=== PATIENT | female | born 1955 | race Caucasian/White ===

== ENCOUNTER 2017-06-09 18:56 | Inpatient (IN) | payer OTHER ==
[~2017-06-09] VITALS: Ht 170.2 cm; Wt 93.1 kg
[2017-06-09] MEDS ORDERED: LASI20TA PO (19:20)
[2017-06-09] MEDS ORDERED: ASPI1TAB PO (19:20)
[2017-06-09] MEDS ORDERED: OXYC15TA76 PO (19:20)
[2017-06-09] MEDS ORDERED: LOPR1TAB6 PO (19:20)
[2017-06-09] MEDS ORDERED: ROPI0.25 PO (19:20)
[2017-06-09] MEDS ORDERED: BIOT50004 PO (19:20)
[2017-06-09] MEDS ORDERED: ATOR40TA75 PO (19:20)
[2017-06-09] MEDS ORDERED: VITA100067 PO (19:20)
[2017-06-09] MEDS ORDERED: HUMU500S SC ×2 (19:20→23:21)
[2017-06-09] MEDS ORDERED: TIZA4CAP3 PO (19:20)
[2017-06-09] MEDS ORDERED: GABA-283 PO (19:20)
[2017-06-09] MEDS ORDERED: AMLO25TA PO (19:20)
[2017-06-09] MEDS ORDERED: MAGN400T5 PO (19:20)
[2017-06-09] MEDS ORDERED: FLUO20CA8 PO (19:20)
[2017-06-09] MEDS ORDERED: MICA80TA3 PO (19:20)
[2017-06-09] MEDS ORDERED: METF10004 PO (19:20)
[2017-06-09] MEDS ORDERED: OMEP40CA2 PO (19:20)
[2017-06-09] MEDS ORDERED: DULC5TAB PO (19:20)
[2017-06-09 20:04] LABS: BASO % 0.3 % (0.0-1.0); EOS % 0.1 % (0.0-3.0); IMMATURE GRANULOCYTE % 0.6 % (0-0); LYMPH # 2.7 10^3/uL (1.5-4.5); LYMPH % 17.4 % (24.0-44.0); MEAN CORPUSCULAR HEMOGLOBIN 25.3 pg (27.0-33.0); MEAN CORPUSCULAR HGB CONC 32.4 g/dl (32.0-36.5); MONO # 1.1 10^3/uL (0.0-0.8); MONO % 7.4 % (0.0-5.0); NEUTROPHILS # 11.4 10^3/uL (1.8-7.7); NEUTROPHILS % 74.2 % (36.0-66.0); PLATELET COUNT, AUTOMATED 177 10^3/uL (150-450); RED CELL DISTRIBUTION WIDTH 16.7 % (11.5-14.5); WHITE BLOOD COUNT 15.3 10^3/uL (4.0-10.0)
[2017-06-09 20:16] LABS: ALBUMIN 3.4 GM/DL (3.2-5.2); ALBUMIN/GLOBULIN RATIO 0.94 (1.00-1.93); ALKALINE PHOSPHATASE 220 U/L (45-117); ALT/SGPT 53 U/L (12-78); ANION GAP 9 MEQ/L (8-16); AST/SGOT 42 U/L (15-37); BILIRUBIN,DIRECT 0.3 MG/DL (0.0-0.2); BILIRUBIN,TOTAL 0.8 MG/DL (0.2-1.0); BLOOD UREA NITROGEN 13 MG/DL (7-18); CALCIUM LEVEL 10.1 MG/DL (8.8-10.2); CARBON DIOXIDE LEVEL 23 MEQ/L (21-32); CHLORIDE LEVEL 106 MEQ/L (98-107); CREATININE FOR GFR 0.57 MG/DL (0.55-1.02); GLOMERULAR FILTRATION RATE > 60.0 (>45); GLUCOSE, FASTING 163 MG/DL (80-110); POTASSIUM SERUM 3.9 MEQ/L (3.5-5.1); SODIUM LEVEL 138 MEQ/L (136-145)
[2017-06-09] MEDS ORDERED: IPRATROPIUM 0.5MG/ALBUTEROL 2.5MG INH SOL UD 3ML (DUONEB)(J7620) NEB ONE (20:45)
[2017-06-09] MEDS ORDERED: methylPREDNISolone INJ 125 MG/2 ML VIAL (J2930) IV ONE (20:45)
[2017-06-09] MEDS ORDERED: ACETAMINOPHEN TAB 650MG DOSE (2X325MG) PO ONE (20:45)
[2017-06-09] MEDS ORDERED: PERCOCET 5MG/325MG TAB PO ONE (22:30)
[2017-06-09] MEDS ORDERED: ISOVUE-370 76% 100ML VIAL (Q9967) As Ordered ONE (22:37)
[2017-06-09] MEDS ORDERED: LevoFLOXacin IV 500 MG in APPROPRIATE DILUENT 1 EA IV ONE (23:15)
[2017-06-09] MEDS ORDERED: GABA600T PO (23:21)
[2017-06-09] MEDS ORDERED: AMLO10TA2 PO (23:21)
[2017-06-09] MEDS ORDERED: LIDO1PAD TOP (23:21)
[2017-06-09] MEDS ORDERED: TELM1TAB2 PO (23:21)
[2017-06-09] MEDS ORDERED: ALBU83IN INH (23:21)
[2017-06-09] MEDS ORDERED: OXYC-517 PO (23:21)
--- NOTE | 2017-06-09 23:30 | REPUSA ---
CT angiogram of the chest Clinical statement: shortness of breath. Technique: Multiple axial CT images were obtained from the thoracic inlet through the upper abdomen a fter a bolus administration of nonionic intravenous contrast. Coronal and sagittal reconstructions we re also obtained. No comparison is available. Findings: The pulmonary arteries are well-opacified with contrast, with no intraluminal filling defec ts to suggest embolism. The thoracic aorta is unremarkable. Thyroid gland is within normal limits. Th ere is mild mediastinal thoracic lymphadenopathy. For example, a large left upper mediastinal lymph n ode measures 1.7 x 1.1 cm. There are extensive diffuse ground glass infiltrates throughout the lungs bilaterally. No pleural effusion or pneumothorax is identified. Limited imaging of the upper abdomen is unremarkable. There are no suspicious osseous lesions. Impression: 1. No evidence of pulmonary embolism. 2. Diffuse extensive ground glass infiltrates throughout the lungs. Differential diagnosis includes i nfectious etiology such as diffuse atypical pneumonia versus inflammatory diseases such as ARDS. Foll ow-up is recommended as clinically indicated. 3. Mild left upper mediastinal lymphadenopathy.
[2017-06-10] MEDS ORDERED: BISACODYL 5 MG TAB PO PRN (01:30)
[2017-06-10] MEDS ORDERED: GLUCOSE 4 GM CHEW TABLET PO PRN (01:30)
[2017-06-10] MEDS ORDERED: LIDOCAINE 5% (LIDODERM) PATCH TOP SCH (01:30)
[2017-06-10] MEDS ORDERED: DEXTROSE 50% 50 ML SYRINGE IV PRN (01:30)
[2017-06-10] MEDS ORDERED: GLUCAGON FOR INJ 1 MG VIAL (J1610) SC PRN (01:30)
--- NOTE | 2017-06-10 02:30 | HPEPDOC ---
General Date of Admission Jun 10, 2017 at 01:27 Primary Care Physician: A Other Providers PCP IS IN [place], [place] Chief Complaint The patient is a 61-year-old female admitted with a reason for visit of Pneumonia. Source: Patient Exam Limitations: No limitations Timing/Duration: Day(s) (2-3 days) History of Present Illness 61 y/o female with past medical history of IDDM, HTN, hyperlipidemia and chronic back pain presents to ED after feeling ill for the past 2-3 days. Pt is apparently visiting family, she lives in [place]. The pt states for the past 4 days she has noted development of a non-productive cough, feeling "feverish" although she never took her temperature, having muscle aches and intermittent chills. She has also been nauseated the past three days but denies vomiting, denies loose stool/constipation nor change in urinary habits, pain with urination or blood in urine. Denies chest pain or feelings of a rapid heart rate. She did admit to a headache located across the front of her forehead for the past couple days, but denies change in vision and dizziness. She denies any sick contacts, and aside from traveling from [place], has no other travel recently and none out of the country. She has had no new medication changes recently, she does admit she sees a heart doctor but is not quite sure for what , denies history of a. fib or heart failure. Home Medications Scheduled (Lidocaine) 5 % Pad, 1 PATCH TOP Q12H, (Reported) Amlodipine Besylate (Amlodipine Besylate) 10 Mg Tab, 10 MG PO DAILY, (Reported) Aspirin (Aspirin 81) 81 Mg Tab, 81 MG PO DAILY, (Reported) Atorvastatin Calcium (Atorvastatin Calcium) 40 Mg Tab, 40 MG PO QHS, (Reported) Biotin (Vitamin H) (Biotin) 5,000 Mcg Cap, 5,000 MCG PO DAILY, (Reported) Fluoxetine Hcl (Fluoxetine) 20 Mg Cap, 40 MG PO DAILY, (Reported) Furosemide (Lasix) 20 Mg Tab, 20 MG PO DAILY, (Reported) Gabapentin (Gabapentin) 600 Mg Tab, 600 MG PO DAILY, (Reported) Insulin (Humulin R U-500 Kwikpen) 500 Unit/Ml Marnie, 140 UNITS SC QAM, (Reported) Insulin (Humulin R U-500 Kwikpen) 500 Unit/Ml Marnie, 110 UNITS SC DAILY, (Reported ) NOONTIME Magnesium Oxide (Magnesium Oxide 400) 400 Mg Tab, 400 MG PO BID, (Reported) Metformin Hydrochloride (Metformin HCl) 1,000 Mg Tab, 1,000 MG PO BID, (Reported ) Metoprolol Tartrate (Lopressor) 50 Mg Tab, 50 MG PO BID, (Reported) Omeprazole (Omeprazole) 40 Mg Cap, 40 MG PO DAILY, (Reported) Ropinirole Hydrochloride (Ropinirole HCl) 0.25 Mg Tab, 0.25-0.5 MG PO QHS, ( Reported) Telmisartan (Telmisartan) 80 Mg Tab, 80 MG PO DAILY, (Reported) Vitamin D (Vitamin D) 1,000 Unit Cap, 1,000 UNIT PO DAILY, (Reported) Scheduled PRN Albuterol Sulfate (Albuterol Sulfate) 2.5 Mg/3 Ml Nebu, 1 VIAL INH Q4H PRN for SHORTNESS OF BREATH, (Reported) Bisacodyl (Dulcolax) 5 Mg Tab, 5 MG PO DAILY PRN for CONSTIPATION, (Reported) Oxycodone HCl (Oxycodone HCl) 5 Mg Tab, 5 MG PO Q6H PRN for PAIN, (Reported) Tizanidine Hydrochloride (Tizanidine HCl) 4 Mg Cap, 2 MG PO TID PRN for MUSCLE SPASMS, (Reported) Allergies Coded Allergies: Erythromycin (Verified Allergy, Unknown, 06/09/17) Pregabalin (Verified Allergy, Unknown, 06/09/17) Sulfamethoxazole w/Trimethoprim (Verified Allergy, Unknown, 06/09/17) Past Medical History Medical History IDDM HTN hyperlipidemia chronic back pain Family History Significant Family History: No pertinent family hx Social History * Smoker: Denies Alcohol: Denies Drugs: denies Recent Travel/Sick Contacts: Reports: Recent travel (lives in [place], visitng relatives in [facility]) Review of Symptoms Constitutional: Reports: Chills, Fever, Malaise, Denies: Night Sweats, Weakness, Fatigue Eyes: Denies: Pain, Vision change ENT: Reports: Head Aches (front of forehead) Skin: Denies: Rash, Lesions, Jaundice Pulmonary: Reports: Dyspnea, Cough, Denies: Pleuritic Chest Pain Cardiovascular: Denies: Chest Pain, Palpitations, Orthopnea, Lt Headedness Gastrointestinal: Reports: Nausea, Denies: Vomiting, Abdominal Pain, Diarrhea, Constipation, Melena, Hematochezia Genitourinary: Denies: Dysuria Hematologic: Denies: Bruising Neurological: Denies: Weakness, Numbness Psych: Reports: Mood Normal Physical Examination General Exam: Positive: Alert, Cooperative, No Acute Distress Eye Exam: Positive: Conjunctiva & lids normal, EOMI, Negative: Sclera icteric, Ptosis ENT Exam: Positive: Atraumatic, Mucous membr. moist/pink, Pharynx Normal, Tongue Midline Neck Exam: Positive: Supple Chest Exam: Positive: Wheezing, Negative: Rales, Rhonchi, Diminished Heart Exam: Positive: Rate Normal, Normal S1, Normal S2, Negative: Gallops, Murmurs, Rubs Telemetry: Positive: No significant arrhythmia Abdomen Exam: Positive: Normal bowel sounds, Soft, Tenderness (mild tenderness in RL and LLQ, pt states it is because she has been coughing so much) Extremity Exam: Negative: Clubbing, Cyanosis, Edema, Swelling Psych Exam: Positive: Mental status NL Vital Signs Vital Signs Date Time Temp Pulse Resp B/P (MAP) Pulse Ox O2 Delivery O2 Flow Rate FiO2 06/10/17 01:33 85 22 142/64 (90) 92 Nasal Cannula 6.0 06/09/17 23:45 98.6 Laboratory Data Labs 24H Laboratory Tests 2 06/09/17 19:19: Immature Granulocyte % (Auto) 0.6H, White Blood Count 15.3H, Red Blood Count 4.95, Hemoglobin 12.5, Hematocrit 38.6, Mean Corpuscular Volume 78.0L, Mean Corpuscular Hemoglobin 25.3L, Mean Corpuscular Hemoglobin Concent 32.4, Red Cell Distribution Width 16.7H, Platelet Count 177, Neutrophils (%) (Auto) 74.2H , Lymphocytes (%) (Auto) 17.4L, Monocytes (%) (Auto) 7.4H, Eosinophils (%) (Auto ) 0.1, Basophils (%) (Auto) 0.3, Neutrophils # (Auto) 11.4H, Lymphocytes # (Auto ) 2.7, Monocytes # (Auto) 1.1H, Eosinophils # (Auto) 0.0, Basophils # (Auto) 0.0 , Immature Granulocyte # (Auto) 0.1H, Nucleated Red Blood Cells % (auto) 0.0, Anion Gap 9, Glomerular Filtration Rate > 60.0, Estimated Mean Plasma Glucose 237H, Hemoglobin A1c 9.9H, Lactic Acid Level 1.4, Calcium Level 10.1, Aspartate Amino Transf (AST/SGOT) 42H, Alanine Aminotransferase (ALT/SGPT) 53, Alkaline Phosphatase 220H, Total Bilirubin 0.8, Direct Bilirubin 0.3H, Total Creatine Kinase 97, Creatine Kinase MB 1.0, Creatine Kinase MB Relative Index 1.03, Troponin I < 0.02, C-Reactive Protein, Quantitative 13.60H, HP-Sjp-N-Type Natriuretic Peptide 228H, Total Protein 7.0, Albumin 3.4, Albumin/Globulin Ratio 0.94L 06/09/17 21:08: Urine Appearance HAZY, Urine Color AMADA, Urine pH 5.0, Urine Specific [place] 1.014, Urine Protein 1+H, Urine Glucose (UA) NEGATIVE, Urine Ketones TRACEH, Urine Urobilinogen 4.0H, Urine Bilirubin NEGATIVE, Urine Leukocyte Esterase TRACEH, Urine Blood 1+H, Urine Nitrite POSITIVE, Urine WBC (Auto) 17H, Urine RBC (Auto) 6H, Urine Hyaline Casts (Auto) 0, Urine Bacteria (Auto) 1+H, Urine Squamous Epithelial Cells 0, Urine Mucus (Auto) SMALL, Urine Sperm (Auto) CBC/BMP Laboratory Tests 06/09/17 19:19 Red Blood Count 4.95, Mean Corpuscular Volume 78.0 L, Mean Corpuscular Hemoglobin 25.3 L, Mean Corpuscular Hemoglobin Concent 32.4, Red Cell Distribution Width 16.7 H, Neutrophils (%) (Auto) 74.2 H, Lymphocytes (%) (Auto ) 17.4 L, Monocytes (%) (Auto) 7.4 H, Eosinophils (%) (Auto) 0.1, Basophils (%) (Auto) 0.3, Neutrophils # (Auto) 11.4 H, Lymphocytes # (Auto) 2.7, Monocytes # ( Auto) 1.1 H, Eosinophils # (Auto) 0.0, Basophils # (Auto) 0.0 Microbiology Microbiology 06/09/17 Blood Culture, Received Pending 06/09/17 Blood Culture, Received Pending 06/09/17 Respiratory Virus Panel (PCR) (RADHIKA), Received Pending Problems (1) Pneumonia Status: Acute Response to Treatment: Stable Problem Text: pt cxr showed right infiltrate CRP and WBC elevated, temp 102.2 upon presentation elevated WBC -sputum cx and resp panel, bloodd cx and UA pending received levofloxacin in ED, will continue oxygen and duoneb therapy no indication for steroid therapy at this time, pt is not SOB one exam and is comfortable CTA demonstrated no evidence of PE and diffuse extensive ground glass infiltrates throughout the lungs w/ mild upper mediastinal lymphadenopathy. (2) HTN (hypertension) Status: Chronic Response to Treatment: Stable Problem Text: 143/63 c/w home medications (3) DM2 (diabetes mellitus, type 2) Status: Chronic Response to Treatment: Stable Problem Text: glucose 163 upon presentation pt receives kwikpen insulin 140 units in the AM and 110 units noontime, will continue 90 units BID and cover with meal time adjusted insulin with ACHS fingersticks HgA1C pending const. carb diet d/c home metformin while in house (4) Chronic back pain Status: Chronic Response to Treatment: Stable Problem Text: c/w home pain medication (5) Restless leg syndrome Status: Chronic Response to Treatment: Stable Problem Text: c/w home Requip (6) DVT prophylaxis Status: Acute Response to Treatment: Stable Problem Text: scd teds lovenox Plan / VTE VTE Prophylaxis Ordered?: Yes GME ATTESTATION GME ATTESTATION My preceptor for this patient encounter was physically present in the building during the encounter and was fully available. As needed, all aspects of the patient interview, examination, medical decision making process, and medical care plan development were reviewed and approved by the preceptor. Preceptor is aware and concurs with the plan as stated in the body of this note and will attest to such by his/her cosignature. ATTENDING NOTE I have both independently examined this patient as well as reviewed the H&P. I have discussed in detail with the resident the findings and plan of treatment as documented in the residents note. I will continue to follow the patient and offer further guidance to the patients care as necessary during this hospital stay. MEHRAN Moreno MD, DO Jun 10, 2017 02:30 ANYA THIBODEAUX MD Jun 10, 2017 18:36
[2017-06-10 03:00] VITALS: BP 158/72
[2017-06-10] MEDS: ATORVASTATIN 20 MG TAB PO SCH ×2 (03:19→20:21)
[2017-06-10] MEDS: rOPINIRole 0.25 MG TAB(REQUIP) PO SCH ×2 (03:19→20:22)
[2017-06-10 06:22] LABS: BASO % 0.1 % (0.0-1.0); IMMATURE GRANULOCYTE % 1.1 % (0-0); LYMPH # 1.5 10^3/uL (1.5-4.5); LYMPH % 9.9 % (24.0-44.0); MEAN CORPUSCULAR HEMOGLOBIN 25.1 pg (27.0-33.0); MEAN CORPUSCULAR HGB CONC 31.8 g/dl (32.0-36.5); MEAN CORPUSCULAR VOLUME 78.8 fl (80.0-96.0); MONO # 0.7 10^3/uL (0.0-0.8); MONO % 4.6 % (0.0-5.0); NEUTROPHILS # 12.8 10^3/uL (1.8-7.7); NEUTROPHILS % 84.3 % (36.0-66.0); PLATELET COUNT, AUTOMATED 178 10^3/uL (150-450); RED CELL DISTRIBUTION WIDTH 16.7 % (11.5-14.5); WHITE BLOOD COUNT 15.2 10^3/uL (4.0-10.0)
[2017-06-10 06:36] LABS: ANION GAP 11 MEQ/L (8-16); BLOOD UREA NITROGEN 16 MG/DL (7-18); CALCIUM LEVEL 9.9 MG/DL (8.8-10.2); CARBON DIOXIDE LEVEL 19 MEQ/L (21-32); CHLORIDE LEVEL 107 MEQ/L (98-107); GLOMERULAR FILTRATION RATE > 60.0 (>45); GLUCOSE, FASTING 327 MG/DL (80-110); POTASSIUM SERUM 3.9 MEQ/L (3.5-5.1); SODIUM LEVEL 137 MEQ/L (136-145)
[2017-06-10] MEDS ORDERED: HUMULIN R U-500 KWIKPEN 500UNITS/ML 3ML SYRINGE (J1815 PER 5UNITS) SC SCH ×2 (07:30→09:00)
[2017-06-10] MEDS ORDERED: HumaLOG INSULIN (NovoLOG) PER UNIT SC SCH (09:00)
[2017-06-10] MEDS: NICOTINE 21MG/24HR 1 EA TRANSDERMAL TD SCH (09:00)
[2017-06-10] MEDS: ENOXAPARIN 40 MG/0.4 ML SYRINGE (J1650) SC SCH (09:41)
[2017-06-10] MEDS: HumaLOG INSULIN (NovoLOG) PER UNIT SC SCH ×4 (09:41→21:19)
[2017-06-10] MEDS: oxyCODONE 5MG TAB PO PRN ×2 (09:43→17:05)
[2017-06-10] MEDS: METOPROLOL TART 50 MG TAB PO SCH ×2 (09:43→20:22)
[2017-06-10] MEDS: MAGNESIUM OXIDE 400 MG TAB (MAG-OX) PO SCH ×2 (09:44→20:21)
[2017-06-10] MEDS: OMEPRAZOLE 20 MG CAP PO SCH (09:44)
[2017-06-10] MEDS: GABAPENTIN 300 MG CAP PO SCH (09:44)
[2017-06-10] MEDS: SENOKOT S TAB PO SCH ×2 (09:45→20:22)
[2017-06-10] MEDS: VITAMIN D 1,000 INTERNATIONAL UNITS TABLET PO SCH (09:45)
[2017-06-10] MEDS: FUROSEMIDE 20 MG TAB PO SCH (09:45)
[2017-06-10] MEDS: ASPIRIN 81 MG ENTERIC TAB PO SCH (09:45)
[2017-06-10] MEDS: FLUoxetine 20 MG CAP PO SCH (09:45)
[2017-06-10] MEDS: amLODIPine 10 MG TAB PO SCH (09:45)
[2017-06-10] MEDS: TELMISARTAN 20 MG TAB PO SCH (09:45)
--- NOTE | 2017-06-10 11:30 | REP ---
Portable chest x-ray: Sitting AP view. History: Dyspnea. Cough. No comparison study. Findings: There are increased somewhat linear markings in the right base consistent with infiltrate. Perihilar markings are increased on the left as well. Pleural angles are sharp. Heart is not enlarged. Impression: Bilateral infiltrates. Signed by Branden Khan MD 06/10/2017 09:39 A
[2017-06-10] MEDS: methylPREDNISolone INJ 125 MG/2 ML VIAL (J2930) IV SCH (12:28)
[2017-06-10 14:00] VITALS: BP 126/60
[2017-06-10] MEDS ORDERED: IBUPROFEN 800 MG TAB PO ONE (20:00)
[2017-06-10] MEDS: LevoFLOXacin IV 750 MG in APPROPRIATE DILUENT 1 EA IV SCH (20:23)
[2017-06-10] MEDS ORDERED: **NOTE PATIENT COMMENT** MISC XX SCH (21:00)
[2017-06-10 22:00] VITALS: BP 137/62
[2017-06-11] MEDS: methylPREDNISolone INJ 125 MG/2 ML VIAL (J2930) IV SCH ×3 (00:09→23:42)
[2017-06-11 06:06] LABS: IMMATURE GRANULOCYTE % 1.8 % (0-0); LYMPH # 1.9 10^3/uL (1.5-4.5); LYMPH % 9.4 % (24.0-44.0); MEAN CORPUSCULAR HEMOGLOBIN 25.1 pg (27.0-33.0); MEAN CORPUSCULAR VOLUME 78.3 fl (80.0-96.0); MONO # 0.8 10^3/uL (0.0-0.8); MONO % 3.8 % (0.0-5.0); NEUTROPHILS # 17.1 10^3/uL (1.8-7.7); PLATELET COUNT, AUTOMATED 221 10^3/uL (150-450); RED CELL DISTRIBUTION WIDTH 16.9 % (11.5-14.5); WHITE BLOOD COUNT 20.2 10^3/uL (4.0-10.0)
[2017-06-11 06:20] LABS: ANION GAP 9 MEQ/L (8-16); BLOOD UREA NITROGEN 29 MG/DL (7-18); CALCIUM LEVEL 9.5 MG/DL (8.8-10.2); CARBON DIOXIDE LEVEL 22 MEQ/L (21-32); CHLORIDE LEVEL 109 MEQ/L (98-107); CREATININE FOR GFR 0.52 MG/DL (0.55-1.02); GLOMERULAR FILTRATION RATE > 60.0 (>45); GLUCOSE, FASTING 322 MG/DL (80-110); MAGNESIUM LEVEL 1.8 MG/DL (1.8-2.4); SODIUM LEVEL 140 MEQ/L (136-145)
[2017-06-11 06:51] VITALS: BP 134/63
--- NOTE | 2017-06-11 07:55 | ECGEPIP ---
Stationary ECG Study [facility] - ED Test Date: 2017-06-09 Pat Name: HAL BECERRA Department: Room: [place] [address] Gender: F Labeling Strategist: GallegosB: 1955 Requested By: JAZMIN Whitfield Order Number: [id number] Reading MD: Renetta Campos Measurements Intervals [place] Rate: 90 P: -16 ND: 174 QRS: -53 QRSD: 114 T: 79 QT: 371 QTc: 455 Interpretive Statements SINUS RHYTHM LEFT ANTERIOR FASCICULAR BLOCK LEFT VENTRICULAR HYPERTROPHY AND ST-T CHANGE VS ISCHEMIA POSSIBLE SEPTAL MYOCARDIAL INFARCTION, OF INDETERMINATE AGE IVCD NO PRIOR FOR COMPARISON Electronically Signed On 06-11-2017 7:55:32 EDT by Renetta Campos
[2017-06-11] MEDS: FLUoxetine 20 MG CAP PO SCH (08:25)
[2017-06-11] MEDS: HumaLOG INSULIN (NovoLOG) PER UNIT SC SCH ×4 (08:25→21:00)
[2017-06-11] MEDS: METOPROLOL TART 50 MG TAB PO SCH ×2 (08:26→21:25)
[2017-06-11] MEDS: ASPIRIN 81 MG ENTERIC TAB PO SCH (08:26)
[2017-06-11] MEDS: SENOKOT S TAB PO SCH ×2 (08:26→21:21)
[2017-06-11] MEDS: FUROSEMIDE 20 MG TAB PO SCH (08:26)
[2017-06-11] MEDS: amLODIPine 10 MG TAB PO SCH (08:26)
[2017-06-11] MEDS: VITAMIN D 1,000 INTERNATIONAL UNITS TABLET PO SCH (08:27)
[2017-06-11] MEDS: MAGNESIUM OXIDE 400 MG TAB (MAG-OX) PO SCH ×2 (08:27→21:22)
[2017-06-11] MEDS: GABAPENTIN 300 MG CAP PO SCH (08:27)
[2017-06-11] MEDS: OMEPRAZOLE 20 MG CAP PO SCH (08:27)
[2017-06-11] MEDS: ENOXAPARIN 40 MG/0.4 ML SYRINGE (J1650) SC SCH (08:28)
[2017-06-11] MEDS: NICOTINE 21MG/24HR 1 EA TRANSDERMAL TD SCH (08:28)
[2017-06-11] MEDS: oxyCODONE 5MG TAB PO PRN ×3 (08:37→21:23)
[2017-06-11] MEDS: TELMISARTAN 20 MG TAB PO SCH (09:48)
[2017-06-11] MEDS: tiZANidine 4 MG TAB PO PRN ×2 (09:59→17:23)
--- NOTE | 2017-06-11 12:16 | IPN ---
DATE: 06/11/2017 Mitch is seen at [address] [place] [address]. She was admitted with atypical pneumonitis. She had myalgias headaches, fevers, chills, temperature up to 102.2 on admission. She is on Levaquin. She is feeling a little better with this. CRP is still high. White count is still elevated,(on steroids). No past history on any cardiac disease. Past medical history shows hypertension, type 2 diabetes now on insulin, chronic pain syndromes, restless leg syndrome. Hyperlipidemia. PHYSICAL EXAMINATION: Blood pressure 136/63, pulse 67, respiratory rate 18, Oxygen saturation 90% on 6 liters, temperature 96.6 degrees. General appearance: She is resting comfortably. She is speaking in full sentences. She has unlabored speech. No retractions. HEENT: Unremarkable. Lungs: Diffuse wheezes, a few rhonchi. Heart: Regular rhythm. No murmur. Abdomen: Soft, nontender, no masses. No peripheral edema. White count 20,000 (on steroids). Platelets 220, hemoglobin 12. Sodium 140, potassium 4.0, BUN 29, creatinine 0.4, glucose 322. Hemoglobin 69.9%. C-reactive protein 14. CT of the chest was reviewed and showed diffuse extensive ground-glass infiltrates throughout the lungs. IMPRESSION: 1. Suspected atypical pneumonitis. She is on Levaquin and will continue this. She is on IV steroids, which I think are helping. Will continue to use these as well. Oxygen requirements are high but she is comfortable and does not seem to be significantly short of breath. Need to keep our thoughts open to noninfectious etiologies such as acute respiratory distress syndrome (ARDS) or inflammatory lung diseases secondary to exposures. 2. Diabetes: Controlled as an outpatient as before. Hemoglobin A1c 9.9%. She is on sliding scale of insulin. Will add some basal insulin. Insulin requirements at home are very high. 3. Hyperlipidemia: Continue her on atorvastatin. 4. History of chronic pain problems. Continue her on Neurontin, fluoxetine, oxycodone. 5. Hypertension: Blood pressure is well controlled on her current regimen.
[2017-06-11 14:00] VITALS: BP 123/59
[2017-06-11] MEDS: IBUPROFEN 600 MG TAB PO PRN (17:24)
[2017-06-11] MEDS: IPRATROPIUM 0.5MG/ALBUTEROL 2.5MG INH SOL UD 3ML (DUONEB)(J7620) NEB PRN (17:43)
[2017-06-11] MEDS ORDERED: LEVEMIR (INSULIN DETEMIR) 1 UNITS/0.01ML SC SCH (21:00)
[2017-06-11] MEDS: ATORVASTATIN 20 MG TAB PO SCH (21:21)
[2017-06-11] MEDS: rOPINIRole 0.25 MG TAB(REQUIP) PO SCH (21:22)
[2017-06-11] MEDS: LevoFLOXacin IV 750 MG in APPROPRIATE DILUENT 1 EA IV SCH (21:23)
[2017-06-11 22:00] VITALS: BP 116/55
[2017-06-12] MEDS: IBUPROFEN 600 MG TAB PO PRN ×4 (00:39→21:24)
[2017-06-12 06:00] VITALS: BP 146/77
[2017-06-12 06:10] LABS: BASO % 0.1 % (0.0-1.0); IMMATURE GRANULOCYTE % 0.9 % (0-0); LYMPH # 1.6 10^3/uL (1.5-4.5); LYMPH % 9.9 % (24.0-44.0); MEAN CORPUSCULAR HEMOGLOBIN 25.1 pg (27.0-33.0); MEAN CORPUSCULAR HGB CONC 32.3 g/dl (32.0-36.5); MEAN CORPUSCULAR VOLUME 77.6 fl (80.0-96.0); MONO # 0.7 10^3/uL (0.0-0.8); MONO % 4.3 % (0.0-5.0); NEUTROPHILS # 14.1 10^3/uL (1.8-7.7); NEUTROPHILS % 84.8 % (36.0-66.0); PLATELET COUNT, AUTOMATED 216 10^3/uL (150-450); RED CELL DISTRIBUTION WIDTH 16.6 % (11.5-14.5); WHITE BLOOD COUNT 16.6 10^3/uL (4.0-10.0)
[2017-06-12 06:43] LABS: ANION GAP 8 MEQ/L (8-16); BLOOD UREA NITROGEN 32 MG/DL (7-18); CALCIUM LEVEL 9.8 MG/DL (8.8-10.2); CARBON DIOXIDE LEVEL 23 MEQ/L (21-32); CHLORIDE LEVEL 106 MEQ/L (98-107); CREATININE FOR GFR 0.54 MG/DL (0.55-1.02); GLOMERULAR FILTRATION RATE > 60.0 (>45); GLUCOSE, FASTING 344 MG/DL (80-110); MAGNESIUM LEVEL 1.9 MG/DL (1.8-2.4); POTASSIUM SERUM 4.1 MEQ/L (3.5-5.1); SODIUM LEVEL 137 MEQ/L (136-145)
[2017-06-12] MEDS: HumaLOG INSULIN (NovoLOG) PER UNIT SC SCH ×4 (08:01→21:00)
[2017-06-12 08:42] VITALS: BP 162/75
[2017-06-12] MEDS: ENOXAPARIN 40 MG/0.4 ML SYRINGE (J1650) SC SCH (09:31)
[2017-06-12] MEDS: TELMISARTAN 20 MG TAB PO SCH (09:32)
[2017-06-12] MEDS: SENOKOT S TAB PO SCH ×2 (09:33→21:00)
[2017-06-12] MEDS: VITAMIN D 1,000 INTERNATIONAL UNITS TABLET PO SCH (09:33)
[2017-06-12] MEDS: NICOTINE 21MG/24HR 1 EA TRANSDERMAL TD SCH (09:33)
[2017-06-12] MEDS: ASPIRIN 81 MG ENTERIC TAB PO SCH (09:33)
[2017-06-12] MEDS: FLUoxetine 20 MG CAP PO SCH (09:33)
[2017-06-12] MEDS: FUROSEMIDE 20 MG TAB PO SCH (09:34)
[2017-06-12] MEDS: amLODIPine 10 MG TAB PO SCH (09:34)
[2017-06-12] MEDS: GABAPENTIN 300 MG CAP PO SCH (09:34)
[2017-06-12] MEDS: OMEPRAZOLE 20 MG CAP PO SCH (09:35)
[2017-06-12] MEDS: METOPROLOL TART 50 MG TAB PO SCH ×2 (09:35→21:12)
[2017-06-12] MEDS: MAGNESIUM OXIDE 400 MG TAB (MAG-OX) PO SCH ×2 (09:35→21:12)
[2017-06-12] MEDS: IPRATROPIUM 0.5MG/ALBUTEROL 2.5MG INH SOL UD 3ML (DUONEB)(J7620) NEB PRN ×2 (09:47→15:37)
[2017-06-12] MEDS: oxyCODONE 5MG TAB PO PRN ×2 (10:11→17:53)
[2017-06-12] MEDS: tiZANidine 4 MG TAB PO PRN (10:44)
--- NOTE | 2017-06-12 11:23 | IPN ---
DATE OF SERVICE: 06/12/2017 Mitch feels better. She was a little short of breath this morning. She responded to nebulized bronchodilator treatment. Being admitted for atypical pneumonitis with interstitial inflammation on IV steroids and Levaquin. Blood pressure is mildly elevated probably steroid effect. PHYSICAL EXAMINATION: 162/75, pulse 65, respiratory rate 22, 91% oxygen saturation on 6 liters. She is alert, conversant, no distress. Looks better than yesterday. Lungs: Expiratory wheezes. A few scattered rales. Heart: Regular rhythm. Abdomen: Soft, nontender. No peripheral edema. No jugular venous distention (JVD). LABS: White count 16,000 on steroids, hemoglobin 12, platelets 216. Sodium 137, potassium 4.1, BUN 32, creatinine 0.6, glucose 60. CRP is down to 8. We are doing these daily. Blood sugars are quite high. IMPRESSION: 1. Atypical pneumonitis. Continue current regimen. Seems to be slowly responding to this. Still has high oxygen requirements. 2. Diabetes. Increase her basal insulin. Blood sugars are high probably from the intravenous steroids. I am going to reduce the dose of these today. Increasing her basal insulin. 3. Hypertension. Blood pressure is a little up this morning probably from the steroids. 4. Hyperlipidemia. Continue atorvastatin. I expect she will be here for at least a few more days.
[2017-06-12] MEDS: methylPREDNISolone INJ 40 MG/1 ML VIAL (J2920) IV SCH ×2 (12:12→23:56)
[2017-06-12 14:33] VITALS: BP 136/63
[2017-06-12] MEDS ORDERED: LEVEMIR (INSULIN DETEMIR) 1 UNITS/0.01ML SC SCH (21:00)
[2017-06-12] MEDS: rOPINIRole 0.25 MG TAB(REQUIP) PO SCH (21:11)
[2017-06-12] MEDS: ATORVASTATIN 20 MG TAB PO SCH (21:11)
[2017-06-12] MEDS: LevoFLOXacin IV 750 MG in APPROPRIATE DILUENT 1 EA IV SCH (21:13)
[2017-06-12 22:00] VITALS: BP 139/66
[2017-06-13] MEDS: oxyCODONE 5MG TAB PO PRN ×2 (05:31→14:22)
[2017-06-13 06:00] VITALS: BP 154/70
[2017-06-13 07:26] LABS: BASO % 0.2 % (0.0-1.0); IMMATURE GRANULOCYTE % 1.1 % (0-0); LYMPH # 1.9 10^3/uL (1.5-4.5); LYMPH % 16.8 % (24.0-44.0); MEAN CORPUSCULAR HGB CONC 32.4 g/dl (32.0-36.5); MEAN CORPUSCULAR VOLUME 77.1 fl (80.0-96.0); MONO # 0.8 10^3/uL (0.0-0.8); NEUTROPHILS # 8.6 10^3/uL (1.8-7.7); NEUTROPHILS % 74.9 % (36.0-66.0); PLATELET COUNT, AUTOMATED 206 10^3/uL (150-450); RED CELL DISTRIBUTION WIDTH 16.6 % (11.5-14.5); WHITE BLOOD COUNT 11.5 10^3/uL (4.0-10.0)
[2017-06-13 07:57] LABS: ANION GAP 5 MEQ/L (8-16); BLOOD UREA NITROGEN 23 MG/DL (7-18); CALCIUM LEVEL 9.2 MG/DL (8.8-10.2); CARBON DIOXIDE LEVEL 26 MEQ/L (21-32); CHLORIDE LEVEL 108 MEQ/L (98-107); CREATININE FOR GFR 0.49 MG/DL (0.55-1.02); GLOMERULAR FILTRATION RATE > 60.0 (>45); GLUCOSE, FASTING 252 MG/DL (80-110); MAGNESIUM LEVEL 1.8 MG/DL (1.8-2.4); POTASSIUM SERUM 4.2 MEQ/L (3.5-5.1); SODIUM LEVEL 139 MEQ/L (136-145)
[2017-06-13] MEDS: SENOKOT S TAB PO SCH ×3 (09:00→21:00)
[2017-06-13] MEDS: FLUoxetine 20 MG CAP PO SCH (09:29)
[2017-06-13] MEDS: GABAPENTIN 300 MG CAP PO SCH (09:29)
[2017-06-13] MEDS: FUROSEMIDE 20 MG TAB PO SCH (09:30)
[2017-06-13] MEDS: IBUPROFEN 600 MG TAB PO PRN (09:30)
[2017-06-13] MEDS: VITAMIN D 1,000 INTERNATIONAL UNITS TABLET PO SCH (09:31)
[2017-06-13] MEDS: ASPIRIN 81 MG ENTERIC TAB PO SCH (09:31)
[2017-06-13] MEDS: amLODIPine 10 MG TAB PO SCH (09:31)
[2017-06-13] MEDS: OMEPRAZOLE 20 MG CAP PO SCH (09:43)
[2017-06-13] MEDS: TELMISARTAN 20 MG TAB PO SCH (09:44)
[2017-06-13] MEDS: METOPROLOL TART 50 MG TAB PO SCH ×2 (09:45→21:27)
[2017-06-13] MEDS: ENOXAPARIN 40 MG/0.4 ML SYRINGE (J1650) SC SCH (09:45)
[2017-06-13] MEDS: NICOTINE 21MG/24HR 1 EA TRANSDERMAL TD SCH (09:45)
[2017-06-13] MEDS: methylPREDNISolone INJ 125 MG/2 ML VIAL (J2930) IV SCH ×3 (09:46→21:27)
[2017-06-13] MEDS: MAGNESIUM OXIDE 400 MG TAB (MAG-OX) PO SCH ×2 (09:47→21:27)
[2017-06-13] MEDS: HumaLOG INSULIN (NovoLOG) PER UNIT SC SCH ×4 (09:58→21:00)
--- NOTE | 2017-06-13 11:15 | CR ---
ADDENDUM: This is an addendum to consult that has already been dictated by my resident. HISTORY OF PRESENT ILLNESS: Mitch is a 61-year-old female who presented with fever, nonproductive cough and muscle aches. On admission had significant ground-glass opacities on chest CT and significant hypoxia. I was asked to see her as now that she is 2 days into her hospitalization, she continues to be significantly hypoxic despite IV steroids and antibiotics. Her viral panel is unremarkable. She did receive a flu shot, however, this was 2 days prior to her leaving [place]. She started with a nonproductive cough and fever at home, then flew to [place] to visit family. She describes having prior lung biopsy, appears to have had a wedge, however, does not believe she was told the results of this test. She thinks she had this biopsy performed approximately a year ago. She has no diagnosis of rheumatoid or connective tissue disorders, however, has migratory arthralgias and was actually seen by a director of placement and told that she does not have rheumatoid arthritis. She states this occurs almost on a yearly basis. She usually requires steroids. At one point in time she was on steroids for 6 months. Eventually it goes away and she no longer needs oxygen. She states occasionally , she goes as high as 6 liters but usually is down to 2 or 3 liters a couple of days into the illness after treatment. She does not routinely use oxygen at home. She denies hemoptysis. History and physical exam independently performed by myself along with a detailed history. This is reflected in my residence's note. ASSESSMENT/PLAN: 1. Severe hypoxia with ground-glass infiltrates on abnormal chest CT. This is quite a suspicious presentation as her initial presentation appears to be infectious given her fever, chills, and non-productive cough with muscle aches. 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 At this point in time, I do not believe that she has a bacterial infection. There is no dense consolidation. Her chest CT is most consistent with ground-glass infiltrates in all [place]. She has no significant productive mucous. Although she has as history of diastolic heart failure, I do not believe she is in decompensated heart failure at this point in time. However, remains in the differential and I would continue to ensure that she remains well compensated. She does have a history of significant smoking, this could be diffuse interstitial pneumonia (DIP). Alternative diagnoses including nonspecific interstitial pneumonia (NSIP), acute interstitial pneumonia (AIP). She does not have any risk factors for HIV, therefore, I think lymphocytic interstitial pneumonia (LIP) is unlikely. I will screen her for HIV as occasionally pneumocystis pneumonia (PCP) can present this way. If she has no significant improvement on higher dose steroids, which I placed her on, I will consider bronchoscopy. However I believe we should aggressively seek records from her prior biopsy in order for better understanding of her prior history as this seems to be a recurring event. I have also obtained fungal titers, although it is unlikely that this is a fungal infection, especially due to the fact that she was in [place]. I have also ordered connective tissue panels due to her history of what sounds like migratory arthritis. She has no other symptoms of connective tissue disorders. No rashes. She has been ruled out for pulmonary embolism. No clinical manifestations of sarcoid and this does not appear to be consistent with tuberculosis. She has had no tuberculosis exposures. DIAGNOSES: 1. Severe hypoxia. 2. Abnormal chest CT. 3. Nicotine dependency, extensively counseled the need to quit smoking. There is a chance that ongoing smoking could be contributing to her disease process. Thank you for this consultation of quite an interesting case. Will continue to follow and continue to obtain information to help us formally diagnose this patient. NIK
--- NOTE | 2017-06-13 11:24 | CR.PDOC ---
[facility] Consultation Consultation DATE OF CONSULTATION: Jun 09, 2017 at 18:56 PRIMARY CARE PHYSICIAN: Dr. Bass in [place] REFERRING PROVIDER: Dr. prado ATTENDING PHYSICIAN: Dr. Srivastava REASON FOR CONSULTATION/CHIEF COMPLAINT: Difficulty breathing, abnormal CT HISTORY OF PRESENT ILLNESS: 61-year-old female that presents with a past medical history of hypertension, hyperlipidemia, chronic back pain, insulin- dependent diabetes mellitus. Patient is a [place] of [place]. On Sunday of this week she started having shortness of breath along with a nonproductive cough. Over the course of the week her symptoms progressed. She flew from [place] to [place] on Sunday. On sunday in [place] she developed a fever , this prompted a visit to the emergency room. She presented to the emergency room with shortness of breath and fever. Patient states she has experienced symptoms like this in the past. According to patient for the past 6 years she has been getting pneumonia annually in the summer, this usually requires hospitalization, oxygen, antibiotics and steroids, she usually stays for about a week. She is discharged home with steroids and a week of oxygen plus an inhaler. She has never been intubated during hospital stays, nor has she ever had to be on ventilator. Patient states that she's had a workup for this chronic recurrent pneumonia. She states that she had a biopsy done about a year ago at [facility] in [place], however she was not made aware of results. Since the beginning of her symptoms she has experienced chest pain, along with chest pressure, especially with coughing. She denies any hemoptysis. She states that her cough are deep and dry. She admits nausea, however denies vomiting and diarrhea. She has no exposure history to TB. Her travel history includes a trip to [place] about 20 years ago, besides that no recent travel travel. She denies any exposure to birds. She admits to occasional swelling in bilateral lower extremities, as well as in the abdomen. Patient also admits to stiff joints on occasions .She denies any environmental allergies. She does have an extensive smoking history patient has been smoking anywhere half a pack to 1 pack a day for the last 40 years. Patient has receive the Prevnar 13 and 23 a year ago. She also received a flu vaccination on 06/11/2017. ALLERGIES: Please see below. HOME MEDICATIONS: Please see below. PAST MEDICAL HISTORY: Pneumonia Hypertension Hyperlipidemia Chronic low back pain Insulin-dependent diabetes mellitus PAST SURGICAL HISTORY: 1. Gallbladder was removed in 2006 2. Lung biopsy FAMILY HISTORY: Denies any family history of lupus, no TB exposure for many family members. SOCIAL HISTORY: Lives at home with her along with 4 dogs. 2 labs, one cocker spaniel, and one terrier. 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 She smokes anywhere between half a pack to 1 pack a day for last 40 years. Patient denies alcohol. Patient is any other illicit drugs. REVIEW OF SYSTEMS: CONSTITUTIONAL: Admits to fever, chills denies night sweats, denies weight loss or weight gain HEENT: Denies any head trauma denies sore throat CARDIOVASCULAR: Admits to chest pain with cough along with chest pressure. RESPIRATORY: admits to shortness of breath. GENITOURINARY: No issues or urinary frequency, dysuria, hematuria. MUSCULOSKELETAL: admits to joint pain and overall muscle pain. GASTROINTESTINAL: No diarrhea, no constipation, no blood in stool. SKIN: No rashes noted. NEUROLOGICAL: No dizziness, no syncope. PSYCHIATRIC: No psychiatric issues to report. ENDOCRINE: No weight gain, no weight loss, no increased frequency or urination no polydipsia. HEMATOLOGIC/LYMPHATIC: No bleeding issues, does admits to abdominal swelling along with a bilateral lower extremity swelling ALLERGIC/IMMUNOLOGIC: Denies any environmental allergies PHYSICAL EXAMINATION: VITAL SIGNS: Please see below. GENERAL APPEARANCE: Alert, cooperative adult female, well-developed, well- nourished. Patient is currently on 6 L flows of oxygen via nasal cannula HEENT:oral mucosa is moist, tongue midline, oropharynx without erythema or exudate. NECK: neck is supple, no thyromegaly noted Lymph: no cervical, supraclavicular axillary adenopathy. RESPIRATORY: Inspiratory and expiratory squeak in bilateral lung oconnor, rhonchi heard on bilateral lower no tactile fremitus, normal egophony. No tactile fremitus. No accessory muscle use. CARDIOVASCULAR: S1 and S2 present, no murmurs, no rubs, no gallops, No elevated JVP. ABDOMEN: Nondistended, nontender to palpate, no hepatosplenomegaly noted. Normoactive bowel sounds. Chest wall: Surgical scar about 1.5 inch going diagonally adjacent to he right breast. EXTREMITIES: Bilateral lower extremity are not swollen at this moment, patient is wearing compression socks. No cyanosis or clubbing. NEUROLOGICAL: No loss sensation. No unliateral weakness, no tremor or seizure activity LABORATORY DATA: Please see below. ASSESSMENT/PLAN: 1. Abnormal chest CT. Differential remains wide. Viral infection: supported by her fever and nonproductive cough, and her muscle pain. Steroids have been administered, to improve patient's breathing. Patient is currently on 6 L of oxygen via nasal cannula. Chest-ray has been ordered for comparison from her original presentation 2 days ago, Interstitial lung disease: Given the patient' s appearance and CT it is possible she could be experiencing a form on interstitial lung disease. A full work up and review of her past medical records are needed for a complete evaluation of a possibility of an interstitial lung disease. Connective tissue lung disease: Given the patient's recurrent history of pneumonia requiring antibiotics, oxygen, steroids, I am concerned of some kind of underlying connective tissue disorder affecting the lungs. Anti-DNA titer level of panel, enad-azgjmv-[id number] DNA, anti- scleroderma antibodies, neutrophilic cytoplasmic antibody, and anti-Sjgren and antibodies have all been ordered to evaluate for connective tissue lung disease. I will also aggressively pursue patient's prior biopsy results. Fungal lung infection: Unlikely given patient is noncompromised state patient does have a low risk for HIV infection given her history. An order for HIV antibody has been placed along fungal antibody. For the possibility of a fungal infections Diastolic heart failure: Patient does have bilateral lower extremity swelling, and does admit to abdominal swelling. Patient is currently on Lasix 20 mg PO alleviate her exercise fluid. TB: Unlikely given patient's low risk, and lack of significant exposures. Vital Signs/I&O Vital Signs Date Time Temp Pulse Resp B/P (MAP) Pulse Ox O2 Delivery O2 Flow Rate FiO2 06/13/17 09:45 154/70 06/13/17 06:01 19 Nasal Cannula 6.0 06/13/17 06:00 97.3 63 90 Laboratory Data Labs 24H Laboratory Tests 2 06/12/17 11:42: Bedside Glucose (Misc Panel) 488H 06/12/17 17:06: Bedside Glucose (Misc Panel) 412H 06/12/17 20:29: Bedside Glucose (Misc Panel) 407H 06/13/17 07:11: Immature Granulocyte % (Auto) 1.1H, White Blood Count 11.5H, Red Blood Count 4.76, Hemoglobin 11.9L, Hematocrit 36.7, Mean Corpuscular Volume 77.1L, Mean Corpuscular Hemoglobin 25.0L, Mean Corpuscular Hemoglobin Concent 32.4, Red Cell Distribution Width 16.6H, Platelet Count 206, Neutrophils (%) (Auto) 74.9H , Lymphocytes (%) (Auto) 16.8L, Monocytes (%) (Auto) 7.0H, Eosinophils (%) (Auto ) 0.0, Basophils (%) (Auto) 0.2, Neutrophils # (Auto) 8.6H, Lymphocytes # (Auto ) 1.9, Monocytes # (Auto) 0.8, Eosinophils # (Auto) 0.0, Basophils # (Auto) 0.0 , Immature Granulocyte # (Auto) 0.1H, Nucleated Red Blood Cells % (auto) 0.0, Anion Gap 5L, Glomerular Filtration Rate > 60.0, Blood Urea Nitrogen 23H, Creatinine 0.49L, Sodium Level 139, Potassium Level 4.2, Chloride Level 108H, Carbon Dioxide Level 26, Calcium Level 9.2, Magnesium Level 1.8, C-Reactive Protein, Quantitative 3.27H 06/13/17 09:49: Bedside Glucose (Misc Panel) 246H 06/13/17 09:54: CBC/BMP Laboratory Tests 06/13/17 07:11 Red Blood Count 4.76, Mean Corpuscular Volume 77.1 L, Mean Corpuscular Hemoglobin 25.0 L, Mean Corpuscular Hemoglobin Concent 32.4, Red Cell Distribution Width 16.6 H, Neutrophils (%) (Auto) 74.9 H, Lymphocytes (%) (Auto ) 16.8 L, Monocytes (%) (Auto) 7.0 H, Eosinophils (%) (Auto) 0.0, Basophils (%) (Auto) 0.2, Neutrophils # (Auto) 8.6 H, Lymphocytes # (Auto) 1.9, Monocytes # ( Auto) 0.8, Eosinophils # (Auto) 0.0, Basophils # (Auto) 0.0, Calcium Level 9.2 Microbiology Microbiology 06/09/17 Blood Culture - Preliminary, Resulted No Growth after 72 hours. All specime... 06/09/17 Blood Culture - Preliminary, Resulted No Growth after 72 hours. All specime... 06/09/17 Respiratory Virus Panel (PCR) (RADHIKA) - Final, Complete Allergies Coded Allergies: Erythromycin (Verified Allergy, Unknown, 06/09/17) Pregabalin (Verified Allergy, Unknown, 06/09/17) Sulfamethoxazole w/Trimethoprim (Verified Allergy, Unknown, 06/09/17) Home Medications Scheduled (Lidocaine) 5 % Pad, 1 PATCH TOP Q12H, (Reported) Amlodipine Besylate (Amlodipine Besylate) 10 Mg Tab, 10 MG PO DAILY, (Reported) Aspirin (Aspirin 81) 81 Mg Tab, 81 MG PO DAILY, (Reported) Atorvastatin Calcium (Atorvastatin Calcium) 40 Mg Tab, 40 MG PO QHS, (Reported) Biotin (Vitamin H) (Biotin) 5,000 Mcg Cap, 5,000 MCG PO DAILY, (Reported) Fluoxetine Hcl (Fluoxetine) 20 Mg Cap, 40 MG PO DAILY, (Reported) Furosemide (Lasix) 20 Mg Tab, 20 MG PO DAILY, (Reported) Gabapentin (Gabapentin) 600 Mg Tab, 600 MG PO DAILY, (Reported) Insulin (Humulin R U-500 Kwikpen) 500 Unit/Ml Marnie, 140 UNITS SC QAM, (Reported) Insulin (Humulin R U-500 Kwikpen) 500 Unit/Ml Marnie, 110 UNITS SC DAILY, (Reported ) NOONTIME Levofloxacin Hemihydrate (Levaquin) 750 Mg Tab, 750 MG PO DAILY@06, #3 Magnesium Oxide (Magnesium Oxide 400) 400 Mg Tab, 400 MG PO BID, (Reported) Metformin Hydrochloride (Metformin HCl) 1,000 Mg Tab, 1,000 MG PO BID, (Reported ) Metoprolol Tartrate (Lopressor) 50 Mg Tab, 50 MG PO BID, (Reported) Nicotine (Nicotine Transdermal Syst) 21 Mg/24 Hr Dis, 1 PATCH TD DAILY, #14 Omeprazole (Omeprazole) 40 Mg Cap, 40 MG PO DAILY, (Reported) Prednisone (Prednisone) 10 Mg Tab, 10 MG PO ASDIRECTED, #140 Ropinirole Hydrochloride (Ropinirole HCl) 0.25 Mg Tab, 0.25-0.5 MG PO QHS, ( Reported) Telmisartan (Telmisartan) 80 Mg Tab, 80 MG PO DAILY, (Reported) Vitamin D (Vitamin D) 1,000 Unit Cap, 1,000 UNIT PO DAILY, (Reported) Scheduled PRN Albuterol Sulfate (Albuterol Sulfate) 2.5 Mg/3 Ml Nebu, 1 VIAL INH Q4H PRN for SHORTNESS OF BREATH, (Reported) Bisacodyl (Dulcolax) 5 Mg Tab, 5 MG PO DAILY PRN for CONSTIPATION, (Reported) Oxycodone HCl (Oxycodone HCl) 5 Mg Tab, 5 MG PO Q6H PRN for PAIN, (Reported) Tizanidine Hydrochloride (Tizanidine HCl) 4 Mg Cap, 2 MG PO TID PRN for MUSCLE SPASMS, (Reported) GME ATTESTATION GME ATTESTATION My preceptor for this patient encounter was physically present in the building during the encounter and was fully available. As needed, all aspects of the patient interview, examination, medical decision making process, and medical care plan development were reviewed and approved by the preceptor. Preceptor is aware and concurs with the plan as stated in the body of this note and will attest to such by his/her cosignature. NORBERTO REYNOLDS DO Jun 13, 2017 11:24 MISAEL SRIVASTAVA Jun 18, 2017 16:58
[2017-06-13] MEDS ORDERED: methylPREDNISolone INJ 40 MG/1 ML VIAL (J2920) IV SCH (12:00)
--- NOTE | 2017-06-13 12:39 | REP ---
PA and lateral chest: Comparisons are the portable chest dated 06/09/[address] of 06/09/2017. There are bilateral infiltrates, similar to the comparison studies. No pleural effusions are identified. Cardiac size appears enlarged. The rc and mediastinum are unremarkable. There is thoracic scoliosis convex right. Impression: Bilateral infiltrates. Cardiomegaly. No pleural effusion. Signed by Angel Stoddard MD 06/13/2017 12:31 P
[2017-06-13 14:00] VITALS: BP 147/66
[2017-06-13] MEDS: tiZANidine 4 MG TAB PO PRN (14:22)
--- NOTE | 2017-06-13 17:09 | IPN ---
DATE: 06/13/2017 The patient is seen and examined. Reported respiration to be mildly improved. Continues to require six liters of oxygen via nasal cannula. Denies any chest pain, pressure or discomfort. Continues to report productive cough. Denies any fevers or chills. VITAL SIGNS: Temperature 97.9, pulse 62, respiration 18, blood pressure 143/66, pulse oximetry 91% on six liters nasal cannula. LABORATORY DATA: WBC 11.5, hemoglobin and hematocrit 11.9/36.7, platelets 207. Chemistry: Sodium 139, potassium 4.2, chloride 108, bicarbonate 26, BUN 23, creatinine 0.49, C-reactive protein down to 3.27. PHYSICAL EXAMINATION: GENERAL: Patient alert, obese, in no acute distress. PULMONARY: Bilateral expiratory wheeze, scattered rales. CARDIAC: Regular rate and rhythm with normal S1, S2. ABDOMEN: Soft, nontender. Positive bowel sounds. EXTREMITIES: No clubbing, cyanosis, or edema. ASSESSMENT AND PLAN: This is 61-year-old female patient with underlying medical history of insulin-dependent diabetes, poorly controlled, obesity, hypertension, dyslipidemia, chronic back pain as well as history of lung nodule with wedge resection, admitted for hypoxic respiratory failure with cough, myalgia, fevers and chills. PROBLEM LIST: 1. Hypoxic respiratory failure with myalgia, fevers, chills, and cough. Differential diagnosis includes community-acquired bacterial pneumonia versus pneumonitis versus cryptogenic pneumonia. CT scans appreciated. Oxygen supplementation. Followup cultures. Rheumatologic workup has been sent. Consulted pulmonology, Dr. Grimes, for further workup. Patient had previous biopsy. Request previous request. Continue Levaquin and Solu-Medrol. Steroid has been increased given hypoxia. Smoking cessation. Followup pulmonary recommendation. 2. Smoking. Counseling provided, nicotine patch. 3. Hyperglycemia with insulin-dependent diabetes. Insulin dose basal bolus has been adjusted. Further adjustments as needed secondary to steroids. 4. Hypertension. Continue home medication. 5. Chronic back pain. Pain medication prescribed. 6. Restless legs. Continue home Requip. 7. Obesity, complicating care. 8. Deep vein thrombosis (DVT) prophylaxis. Lovenox subcutaneous. DISPOSITION PLANNING: Pending further workup, clinical improvement, wean FiO2 as tolerated.
[2017-06-13] MEDS ORDERED: LEVEMIR (INSULIN DETEMIR) 1 UNITS/0.01ML SC SCH (21:00)
[2017-06-13] MEDS: LevoFLOXacin IV 750 MG in APPROPRIATE DILUENT 1 EA IV SCH (21:26)
[2017-06-13] MEDS: rOPINIRole 0.25 MG TAB(REQUIP) PO SCH (21:26)
[2017-06-13] MEDS: ATORVASTATIN 20 MG TAB PO SCH (21:27)
[2017-06-13 22:00] VITALS: BP 153/71
--- NOTE | 2017-06-13 23:27 | ECHO ---
DATE OF PROCEDURE: 06/12/2017 REFERRING PHYSICIAN: Harsha Tran MD INDICATION: dyspnea. HEIGHT: 170 cm WEIGHT: 88 kg 2D MEASUREMENTS: Aortic root: 3.3 cm Left atrium: 5.1 cm Ventricular septum: 1.27 cm Posterior wall: 1.34 cm Left ventricle diastole: 4.7 cm LVOT: 2.1 cm Inferior vena cava: 1.5 cm DOPPLER MEASUREMENTS: Aortic valve velocity: 164 cm/s LVOT velocity: 115 cm/s LVOT VTI: 21.0 cm Trace mitral regurgitation. Mitral E velocity: 100 cm/s Mitral A velocity: 95.6 cm/s Mitral deceleration time: 222 ms Pulmonary artery systolic pressure 25 mmHg by pulmonary acceleration time method. MITRAL ANNULAR TISSUE DOPPLER: E prime septal: 6.7 cm/s E prime lateral: 9.85 cm/s DESCRIPTION: Rhythm was sinus. This is a moderately technically difficult echocardiogram. No pericardial effusion. This is a 2D, M-mode, color flow Doppler and pulse wave Doppler examination that included mitral annular tissue Doppler. CONCLUSIONS: 1. Mild concentric left ventricle hypertrophy. No regional wall motion abnormality of the left ventricle. Normal LV systolic function. Left ventricular ejection fraction (LVEF) 65% by visual estimate. Grade 2 LV diastolic dysfunction (pseudonormal LV filling pattern). B-notch on mitral valve M-mode pattern suggestive of elevated LVEP. 2. Severe left atrial dilatation. 3. Mild aortic valve sclerosis of a three-cuspid aortic valve. No aortic regurgitation. 4. Mild mitral annular calcification. Trace mitral regurgitation. 5. Suggestive of normal PA systolic pressure.
[2017-06-14] MEDS: oxyCODONE 5MG TAB PO PRN ×4 (04:10→20:04)
[2017-06-14] MEDS: methylPREDNISolone INJ 125 MG/2 ML VIAL (J2930) IV SCH ×4 (04:11→22:00)
[2017-06-14 06:00] VITALS: BP 153/88
[2017-06-14 06:18] LABS: BASO % 0.2 % (0.0-1.0); IMMATURE GRANULOCYTE % 1.5 % (0-0); LYMPH # 1.8 10^3/uL (1.5-4.5); LYMPH % 18.8 % (24.0-44.0); MEAN CORPUSCULAR HEMOGLOBIN 25.4 pg (27.0-33.0); MEAN CORPUSCULAR VOLUME 76.9 fl (80.0-96.0); MONO # 0.5 10^3/uL (0.0-0.8); MONO % 5.5 % (0.0-5.0); PLATELET COUNT, AUTOMATED 220 10^3/uL (150-450); RED CELL DISTRIBUTION WIDTH 16.2 % (11.5-14.5); WHITE BLOOD COUNT 9.5 10^3/uL (4.0-10.0)
[2017-06-14 06:32] LABS: ANION GAP 5 MEQ/L (8-16); BLOOD UREA NITROGEN 22 MG/DL (7-18); CALCIUM LEVEL 9.4 MG/DL (8.8-10.2); CARBON DIOXIDE LEVEL 29 MEQ/L (21-32); CHLORIDE LEVEL 104 MEQ/L (98-107); CREATININE FOR GFR 0.45 MG/DL (0.55-1.02); GLOMERULAR FILTRATION RATE > 60.0 (>45); GLUCOSE, FASTING 269 MG/DL (80-110); MAGNESIUM LEVEL 1.7 MG/DL (1.8-2.4); POTASSIUM SERUM 3.9 MEQ/L (3.5-5.1); SODIUM LEVEL 138 MEQ/L (136-145)
[2017-06-14] MEDS: NICOTINE 21MG/24HR 1 EA TRANSDERMAL TD SCH (09:47)
[2017-06-14] MEDS: ENOXAPARIN 40 MG/0.4 ML SYRINGE (J1650) SC SCH (09:48)
[2017-06-14] MEDS: ASPIRIN 81 MG ENTERIC TAB PO SCH (09:49)
[2017-06-14] MEDS: GABAPENTIN 300 MG CAP PO SCH (09:49)
[2017-06-14] MEDS: FUROSEMIDE 20 MG TAB PO SCH (09:49)
[2017-06-14] MEDS: SENOKOT S TAB PO SCH ×2 (09:50→20:05)
[2017-06-14] MEDS: VITAMIN D 1,000 INTERNATIONAL UNITS TABLET PO SCH (09:50)
[2017-06-14] MEDS: METOPROLOL TART 50 MG TAB PO SCH ×2 (09:50→20:06)
[2017-06-14] MEDS: amLODIPine 10 MG TAB PO SCH (09:50)
[2017-06-14] MEDS: OMEPRAZOLE 20 MG CAP PO SCH (09:50)
[2017-06-14] MEDS: FLUoxetine 20 MG CAP PO SCH (09:51)
[2017-06-14] MEDS: MAGNESIUM OXIDE 400 MG TAB (MAG-OX) PO SCH ×2 (09:51→20:04)
[2017-06-14] MEDS: TELMISARTAN 20 MG TAB PO SCH (09:51)
[2017-06-14] MEDS: HumaLOG INSULIN (NovoLOG) PER UNIT SC SCH ×4 (09:54→20:05)
[2017-06-14] MEDS: LEVEMIR (INSULIN DETEMIR) 1 UNITS/0.01ML SC SCH ×2 (09:55→20:05)
[2017-06-14 13:30] VITALS: BP 145/68
--- NOTE | 2017-06-14 16:19 | IPN ---
DATE: 06/14/2017 Patient is seen and examined. No acute events overnight. Denies any chest pain, pressure or discomfort, fevers or chills. Patient reported respirations much improved, down to 4 liters FiO2. VITAL SIGNS: Temperature 97.3, pulse 60, respirations 18, blood pressure 145/68, pulse oximetry 91% on 4 liters nasal cannula. LABORATORY DATA: WBC 9.5, hemoglobin and hematocrit 12.2/37, platelets 220. Chemistry: Sodium 138, potassium 3.9, chloride 104, bicarbonate 29, BUN 22, creatinine 0.45, C-reactive protein 1.85. PHYSICAL EXAMINATION: GENERAL: Patient alert, obese, in no acute distress. PULMONARY: Bilateral expiratory wheeze, scattered rales. CARDIAC: Regular rate and rhythm, normal S1, S2. ABDOMEN: Soft, nontender. Positive bowel sounds. EXTREMITIES: No clubbing, cyanosis, or edema. ASSESSMENT AND PLAN: This is a 61-year-old female patient with underlying medical history of insulin dependent diabetes, poorly controlled, obesity, hypertension, dyslipidemia, chronic back pain, as well as history of lung nodules with wedge resection admitted for hypoxic respiratory failure with cough, myalgia, fevers, and chills. 1. Acute hypoxic respiratory failure with myalgia, fevers, chills, cough. Differential diagnoses includes community-acquired bacterial pneumonia, pneumonitis versus cryptogenic organizing pneumonia. CT scan appreciated. Oxygen supplementation. Followup cultures. Rheumatologic workup has been sent. Consulted pulmonology, Dr. Grimes. Patient had previous biopsies. Record has been requested. Continue Levaquin, high dose Solu-Medrol, taper steroids. Wean FiO2. Smoking cessation. Followup pulmonology recommendations. As per Dr. Grimes, patient will likely need prolonged steroids with 40 mg by mouth daily for 2 weeks, followed by 30 mg by mouth daily for 2 weeks, followed by 20 mg by mouth daily for 2 weeks, followed by 10 mg by mouth daily for 2 weeks, and followup with pulmonology. 2. Smoking. Counseling provided. Nicotine patch. 3. Hyperglycemia with insulin dependent diabetes. Insulin basal bolus has been adjusted, further adjustment as needed. Hyperglycemia secondary to steroids. 4. Hypertension. Continue home medication. 5. Chronic back pain. Continue current medication. 6. Restless legs. Continue Requip. 7. Obesity, complicating care. 8. Deep venous thrombosis (DVT) prophylaxis. Lovenox subcutaneous. DISPOSITION PLANNING: Pending clinical improvement. Wean FiO2.
[2017-06-14] MEDS: ATORVASTATIN 20 MG TAB PO SCH (20:03)
[2017-06-14] MEDS: LevoFLOXacin IV 750 MG in APPROPRIATE DILUENT 1 EA IV SCH (20:04)
[2017-06-14] MEDS: rOPINIRole 0.25 MG TAB(REQUIP) PO SCH (20:04)
[2017-06-14 22:00] VITALS: BP 149/69
[2017-06-15] MEDS: methylPREDNISolone INJ 125 MG/2 ML VIAL (J2930) IV SCH ×4 (03:45→21:26)
[2017-06-15 06:00] VITALS: BP 150/77
[2017-06-15] MEDS: HumaLOG INSULIN (NovoLOG) PER UNIT SC SCH ×4 (07:30→20:38)
[2017-06-15 07:42] LABS: BASO % 0.1 % (0.0-1.0); IMMATURE GRANULOCYTE % 1.9 % (0-0); LYMPH # 1.6 10^3/uL (1.5-4.5); LYMPH % 16.3 % (24.0-44.0); MEAN CORPUSCULAR HEMOGLOBIN 24.5 pg (27.0-33.0); MEAN CORPUSCULAR VOLUME 76.7 fl (80.0-96.0); MONO # 0.5 10^3/uL (0.0-0.8); NEUTROPHILS # 7.4 10^3/uL (1.8-7.7); NEUTROPHILS % 76.7 % (36.0-66.0); PLATELET COUNT, AUTOMATED 209 10^3/uL (150-450); RED CELL DISTRIBUTION WIDTH 15.9 % (11.5-14.5); WHITE BLOOD COUNT 9.7 10^3/uL (4.0-10.0)
[2017-06-15 08:00] LABS: ANION GAP 7 MEQ/L (8-16); BLOOD UREA NITROGEN 27 MG/DL (7-18); CARBON DIOXIDE LEVEL 28 MEQ/L (21-32); CHLORIDE LEVEL 105 MEQ/L (98-107); GLOMERULAR FILTRATION RATE > 60.0 (>45); GLUCOSE, FASTING 233 MG/DL (80-110); MAGNESIUM LEVEL 1.8 MG/DL (1.8-2.4); POTASSIUM SERUM 3.7 MEQ/L (3.5-5.1); SODIUM LEVEL 140 MEQ/L (136-145)
[2017-06-15] MEDS: LEVEMIR (INSULIN DETEMIR) 1 UNITS/0.01ML SC SCH ×2 (09:00→20:37)
[2017-06-15] MEDS: NICOTINE 21MG/24HR 1 EA TRANSDERMAL TD SCH (09:15)
[2017-06-15] MEDS: TELMISARTAN 20 MG TAB PO SCH (09:16)
[2017-06-15] MEDS: ENOXAPARIN 40 MG/0.4 ML SYRINGE (J1650) SC SCH (09:16)
[2017-06-15] MEDS: ASPIRIN 81 MG ENTERIC TAB PO SCH (09:16)
[2017-06-15] MEDS: MAGNESIUM OXIDE 400 MG TAB (MAG-OX) PO SCH ×2 (09:20→20:37)
[2017-06-15] MEDS: SENOKOT S TAB PO SCH ×2 (09:20→20:37)
[2017-06-15] MEDS: FLUoxetine 20 MG CAP PO SCH (09:20)
[2017-06-15] MEDS: VITAMIN D 1,000 INTERNATIONAL UNITS TABLET PO SCH (09:20)
[2017-06-15] MEDS: METOPROLOL TART 50 MG TAB PO SCH ×2 (09:21→20:36)
[2017-06-15] MEDS: FUROSEMIDE 20 MG TAB PO SCH (09:21)
[2017-06-15] MEDS: GABAPENTIN 300 MG CAP PO SCH (09:21)
[2017-06-15] MEDS: OMEPRAZOLE 20 MG CAP PO SCH (09:21)
[2017-06-15] MEDS: amLODIPine 10 MG TAB PO SCH (09:22)
[2017-06-15 10:00] VITALS: BP 118/56
[2017-06-15] MEDS: oxyCODONE 5MG TAB PO PRN ×2 (10:39→20:43)
[2017-06-15] MEDS: tiZANidine 4 MG TAB PO PRN (10:39)
[2017-06-15 14:00] VITALS: BP 158/74
[2017-06-15] MEDS: LevoFLOXacin 750 MG TABLET PO SCH (15:33)
--- NOTE | 2017-06-15 15:37 | IPN ---
DATE: 06/15/2017 Patient is seen and examined. No acute events overnight. Reported improved respirations. Currently feels comfortable. VITAL SIGNS: Temperature 97.4, pulse 63, respirations 18, blood pressure 158/74, pulse oximetry 98% on 4 liters. LABORATORY DATA: WBC 9.7, hemoglobin and hematocrit 11.7/36.6, platelets 209. Chemistry: Sodium 140, potassium 3.7, chloride 105, bicarbonate 28, BUN 27, creatinine 0.5. PHYSICAL EXAMINATION: GENERAL: Patient alert, oriented, in no acute distress, obese. HEENT: Normocephalic, atraumatic. PULMONARY: Bilateral expiratory wheeze, scattered rales. CARDIAC: Regular rate and rhythm, normal S1, S2. ABDOMEN: Soft, nontender. Positive bowel sounds. EXTREMITIES: No clubbing, cyanosis, or edema. ASSESSMENT AND PLAN: This is a 61-year-old female patient with underlying medical history of insulin dependent diabetes, poorly controlled, obesity, hypertension, dyslipidemia, chronic back pain, as well as history of lung nodules, had a wedge resection, admitted for hypoxic respiratory failure with cough, myalgia, fevers, and chills. 1. Acute hypoxic respiratory failure with myalgia, fevers, chills, coughing. Differential diagnoses includes community-acquired bacterial pneumonia with pneumonitis versus cryptogenic organizing pneumonia. CT scan appreciated. Oxygen supplementation. Weaning FiO2. Followup cultures. Rheumatologic workup has been sent, but previous workup according to the record that was obtained was negative. Pulmonology has been consulted. Patient had previous biopsy suggestive of pneumonia. Continue Levaquin, Solu-Medrol, taper steroids, currently down to 60 every 6 hours. Weaning FiO2. Smoking cessation. Followup pulmonology recommendations. Will likely need prolonged steroids in the form of 40 mg by mouth daily for 2 weeks, followed by 30 mg by mouth daily for 2 weeks, followed by 20 mg by mouth daily for 2 weeks, then 10 mg by mouth daily for 2 weeks, and outpatient followup with tumbling instructor, but currently patient is still on pretty high steroids, need to be tapered prior to discharge. 2. Smoking. Counseling provided. Nicotine patch. 3. Hyperglycemia. Hyperglycemia secondary to steroids. Insulin dependent diabetes at baseline. Insulin basal bolus has been adjusted. Taper steroids. 4. Hypertension. Continue home medication. 5. Chronic back pain. Continue current medication. 6. Restless legs. Continue Requip. 7. Obesity, complicating care. 8. Deep venous thrombosis (DVT) prophylaxis. Lovenox subcutaneous. DISPOSITION PLANNING: Pending clinical improvement, steroid taper, weaning FiO2.
[2017-06-15] MEDS: rOPINIRole 0.25 MG TAB(REQUIP) PO SCH (20:37)
[2017-06-15] MEDS: ATORVASTATIN 20 MG TAB PO SCH (20:37)
[2017-06-15 22:00] VITALS: BP 152/64
[2017-06-16] MEDS: IBUPROFEN 600 MG TAB PO PRN ×2 (01:27→22:15)
[2017-06-16] MEDS: tiZANidine 4 MG TAB PO PRN ×3 (01:28→22:15)
[2017-06-16] MEDS: methylPREDNISolone INJ 125 MG/2 ML VIAL (J2930) IV SCH (04:03)
[2017-06-16] MEDS: LevoFLOXacin 750 MG TABLET PO SCH (05:30)
[2017-06-16 06:00] VITALS: BP 135/75
[2017-06-16 06:46] LABS: BASO % 0.2 % (0.0-1.0); IMMATURE GRANULOCYTE % 1.7 % (0-0); LYMPH # 1.4 10^3/uL (1.5-4.5); LYMPH % 14.6 % (24.0-44.0); MEAN CORPUSCULAR HGB CONC 32.5 g/dl (32.0-36.5); MEAN CORPUSCULAR VOLUME 76.9 fl (80.0-96.0); MONO # 0.6 10^3/uL (0.0-0.8); MONO % 5.9 % (0.0-5.0); NEUTROPHILS # 7.4 10^3/uL (1.8-7.7); NEUTROPHILS % 77.6 % (36.0-66.0); PLATELET COUNT, AUTOMATED 198 10^3/uL (150-450); RED CELL DISTRIBUTION WIDTH 15.9 % (11.5-14.5); WHITE BLOOD COUNT 9.5 10^3/uL (4.0-10.0)
[2017-06-16 07:18] LABS: ANION GAP 5 MEQ/L (8-16); BLOOD UREA NITROGEN 25 MG/DL (7-18); CALCIUM LEVEL 8.7 MG/DL (8.8-10.2); CARBON DIOXIDE LEVEL 30 MEQ/L (21-32); CHLORIDE LEVEL 104 MEQ/L (98-107); CREATININE FOR GFR 0.51 MG/DL (0.55-1.02); GLOMERULAR FILTRATION RATE > 60.0 (>45); GLUCOSE, FASTING 206 MG/DL (80-110); MAGNESIUM LEVEL 1.8 MG/DL (1.8-2.4); SODIUM LEVEL 139 MEQ/L (136-145)
[2017-06-16] MEDS: GABAPENTIN 300 MG CAP PO SCH (09:10)
[2017-06-16] MEDS: ASPIRIN 81 MG ENTERIC TAB PO SCH (09:11)
[2017-06-16] MEDS: MAGNESIUM OXIDE 400 MG TAB (MAG-OX) PO SCH ×2 (09:11→20:26)
[2017-06-16] MEDS: OMEPRAZOLE 20 MG CAP PO SCH (09:11)
[2017-06-16] MEDS: FLUoxetine 20 MG CAP PO SCH (09:11)
[2017-06-16] MEDS: FUROSEMIDE 20 MG TAB PO SCH (09:12)
[2017-06-16] MEDS: oxyCODONE 5MG TAB PO PRN ×2 (09:13→18:14)
[2017-06-16] MEDS: SENOKOT S TAB PO SCH ×2 (09:13→20:25)
[2017-06-16] MEDS: ENOXAPARIN 40 MG/0.4 ML SYRINGE (J1650) SC SCH (09:14)
[2017-06-16] MEDS: VITAMIN D 1,000 INTERNATIONAL UNITS TABLET PO SCH (09:14)
[2017-06-16] MEDS: NICOTINE 21MG/24HR 1 EA TRANSDERMAL TD SCH (09:14)
[2017-06-16] MEDS: HumaLOG INSULIN (NovoLOG) PER UNIT SC SCH ×4 (09:15→20:31)
[2017-06-16] MEDS: LEVEMIR (INSULIN DETEMIR) 1 UNITS/0.01ML SC SCH ×2 (09:16→20:29)
[2017-06-16] MEDS: METOPROLOL TART 50 MG TAB PO SCH ×2 (09:17→20:44)
[2017-06-16] MEDS: amLODIPine 10 MG TAB PO SCH (09:17)
[2017-06-16] MEDS: TELMISARTAN 20 MG TAB PO SCH (09:17)
[2017-06-16] MEDS ORDERED: PRED10TA2 PO (11:26)
[2017-06-16] MEDS ORDERED: LEVA750T7 PO (11:26)
[2017-06-16] MEDS ORDERED: NICO21PAT TD (11:26)
--- NOTE | 2017-06-16 11:46 | IPN ---
DATE: 06/16/2017 Patient seen and examined. No acute events overnight. Denies any chest pain, pressure discomfort. Reported respirations much improved. Denies any fevers or chills. VITAL SIGNS: Temperature 97.9, pulse 56, respirations 15, blood pressure 135/75, pulse oximetry 96% on 4 liters nasal cannula. LABORATORY DATA: WBC 9.5, hemoglobin and hematocrit 11.6 over 35.7, platelets 198. Chemistry: Sodium 139, potassium 4, chloride 104, bicarbonate 30, BUN 25, creatinine 0.5, magnesium 1.8. PHYSICAL EXAMINATION: GENERAL: Patient alert and oriented times three, in no acute distress, obese. HEENT: Normocephalic, atraumatic. PULMONARY: Bilaterally expiratory wheeze, only minimal. CARDIAC: Regular rate and rhythm. Normal S1, S2. ABDOMEN: Soft, nontender, positive bowel sounds. EXTREMITIES: No clubbing, cyanosis or edema. ASSESSMENT AND PLAN: This is a 61-year-old female patient with underlying medical history of insulin-dependent diabetes, poorly controlled, obesity, hypertension, dyslipidemia, chronic back pain, as well as history of lung nodule, had a wedge resection before, admitted for hypoxic respiratory failure with coughing, myalgia, fevers and chills. Problems: 1. Acute hypoxic respiratory failure with myalgia, fevers and chills, and coughing. Differential diagnosis includes community-acquired bacterial pneumonia , versus pneumonitis, versus cryptogenic organizing pneumonia. CT scan appreciated. Oxygen supplementation. Weaning FiO2. Followup cultures. Rheumatologic workup has been sent. Previous record has been obtained with negative workup before. Pulmonology has been consulted. Continue Levaquin. Solu-Medrol has been switched to prednisone by [facility]. Smoking cessation. Nicotine patch. Followup pulmonology recommendations. Would need prolonged steroids in the form of 40mg prednisone daily for about 2 weeks, followed by 30 mg by mouth daily for 2 weeks, followed by 20 mg by mouth daily for 2 weeks, and then 10 mg by mouth daily for 2 weeks. Outpatient followup with [facility]. 2. Smoking. Counseling provider. Nicotine patch. 3. Hyperglycemia secondary to steroids, insulin dependent diabetes at baseline. Basal bolus insulin, adjust as needed. Taper steroids. 4. Hypertension. Continue home mediation. 5. Chronic back pain. Continue current medication. 6. Restless legs. Continue Requip. 7. Obesity. Complicating care. 8. Deep vein thrombosis (DVT) prophylaxis. Lovenox subcutaneous. DISPOSITION PLANNING: Pending clinical improvement, weaning FiO2. MTDD
[2017-06-16] MEDS: predniSONE 20 MG TAB PO SCH (13:45)
[2017-06-16 14:00] VITALS: BP 148/60
[2017-06-16] MEDS: ATORVASTATIN 20 MG TAB PO SCH (20:25)
[2017-06-16] MEDS: rOPINIRole 0.25 MG TAB(REQUIP) PO SCH (20:26)
[2017-06-16 22:00] VITALS: BP 148/72
[2017-06-17] MEDS: tiZANidine 4 MG TAB PO PRN ×3 (05:52→23:38)
[2017-06-17] MEDS: LevoFLOXacin 750 MG TABLET PO SCH (05:52)
[2017-06-17] MEDS: oxyCODONE 5MG TAB PO PRN ×3 (05:53→20:21)
[2017-06-17 06:00] VITALS: BP 156/82
[2017-06-17 06:10] LABS: MEAN CORPUSCULAR HGB CONC 32.3 g/dl (32.0-36.5); MEAN CORPUSCULAR VOLUME 77.5 fl (80.0-96.0); PLATELET COUNT, AUTOMATED 184 10^3/uL (150-450); RED CELL DISTRIBUTION WIDTH 15.8 % (11.5-14.5); WHITE BLOOD COUNT 6.8 10^3/uL (4.0-10.0)
[2017-06-17 06:33] LABS: ANION GAP 4 MEQ/L (8-16); BLOOD UREA NITROGEN 19 MG/DL (7-18); CALCIUM LEVEL 9.1 MG/DL (8.8-10.2); CARBON DIOXIDE LEVEL 34 MEQ/L (21-32); CHLORIDE LEVEL 104 MEQ/L (98-107); CREATININE FOR GFR 0.48 MG/DL (0.55-1.02); GLOMERULAR FILTRATION RATE > 60.0 (>45); GLUCOSE, FASTING 125 MG/DL (80-110); MAGNESIUM LEVEL 1.8 MG/DL (1.8-2.4); POTASSIUM SERUM 3.6 MEQ/L (3.5-5.1); SODIUM LEVEL 142 MEQ/L (136-145)
[2017-06-17] MEDS: METOPROLOL TART 50 MG TAB PO SCH ×2 (09:00→21:21)
[2017-06-17] MEDS: HumaLOG INSULIN (NovoLOG) PER UNIT SC SCH ×4 (09:06→21:21)
[2017-06-17] MEDS: ENOXAPARIN 40 MG/0.4 ML SYRINGE (J1650) SC SCH (09:07)
[2017-06-17] MEDS: NICOTINE 21MG/24HR 1 EA TRANSDERMAL TD SCH (09:07)
[2017-06-17] MEDS: MAGNESIUM OXIDE 400 MG TAB (MAG-OX) PO SCH ×2 (09:08→21:20)
[2017-06-17] MEDS: OMEPRAZOLE 20 MG CAP PO SCH (09:08)
[2017-06-17] MEDS: TELMISARTAN 20 MG TAB PO SCH (09:09)
[2017-06-17] MEDS: GABAPENTIN 300 MG CAP PO SCH (09:10)
[2017-06-17] MEDS: SENOKOT S TAB PO SCH (09:10)
[2017-06-17] MEDS: predniSONE 20 MG TAB PO SCH (09:10)
[2017-06-17] MEDS: ASPIRIN 81 MG ENTERIC TAB PO SCH (09:10)
[2017-06-17] MEDS: VITAMIN D 1,000 INTERNATIONAL UNITS TABLET PO SCH (09:10)
[2017-06-17] MEDS: FLUoxetine 20 MG CAP PO SCH (09:11)
[2017-06-17] MEDS: amLODIPine 10 MG TAB PO SCH (09:11)
[2017-06-17] MEDS: FUROSEMIDE 20 MG TAB PO SCH (09:11)
[2017-06-17] MEDS: LEVEMIR (INSULIN DETEMIR) 1 UNITS/0.01ML SC SCH ×2 (09:36→21:22)
[2017-06-17 14:00] VITALS: BP 138/80
--- NOTE | 2017-06-17 17:43 | IPNPDOC ---
Text Note Date of Service The patient was seen on 06/17/17. NOTE Subjective: Patient is a 61 year old female with a PMHx of HTN, DLP, IDDM2, Chronic back pain, Obesity and Hx of Lung nodule s/p Wedge resection who presented to the ER with coughing, myalgia and fevers. She was admitted for acute hypoxic respiratory failure of multifactorial etiology. Patient was seen and examined at the bedside. She notes that her breathing has improved significantly. She is seen without any supplemental oxygen. I have advised her that physical therapy will ambulate you and will recheck her oxygenation. Objective: Vitals (See below) General: Lying in bed, no acute distress, comfortable, AAOx3 HEENT: NC, AT CVS: RRR, +S1S2 Lungs: Fair air entry b/l, mild expiratory wheezing appreciated Abdomen: Soft, ND, NT Extremities: - Edema, - Calf tenderness Assessment and plan: Acute hypoxic respiratory failure - possibly 2/2 CAP, Pneumonitis, Cryptogenic organizing pneumonia - Presented with myalgia, fever / chills and productive cough - Physical reveals wheezing bilaterally - Respiratory panel 06/09: Negative; Blood Cultures 06/09: no growth at 5 days - Rheumatalgic workup remains pending - c/w Levaquin and Prednisone (specific taper); s/p Solumedrol - Has been weaned off supplemental oxygen - Pulmonary consulted; appreciate their input Smoker - Advised smoking cessation - c/w Nicotine patch Hyperglycemia - likely 2/2 IDDM2 and corticosteroid use - Will continue to adjust with steroid taper - c/w ISS and Levemir HTN - BP well controlled - c/w Amlodipine, Furosemide, Telmisartan and Metoprolol DLP - c/w Atorvastatin Chronic back pain - c/w Tizanidine and Oxycodoen RLS - c/w Ropinirole Depression - c/w Fluoxetine Obesity - complicating medical care GERD - c/w omeprazole DVT prophylaxis - c/w Lovenox Disposition: - c/w PT/OT VS,Fishbone, I+O VS, Fishbone, I+O Laboratory Tests 06/17/17 05:40 Red Blood Count 4.84, Mean Corpuscular Volume 77.5 L, Mean Corpuscular Hemoglobin 25.0 L, Mean Corpuscular Hemoglobin Concent 32.3, Red Cell Distribution Width 15.8 H, Calcium Level 9.1 Vital Signs Date Time Temp Pulse Resp B/P (MAP) Pulse Ox O2 Delivery O2 Flow Rate FiO2 06/17/17 16:45 93 Nasal Cannula 1.0 06/17/17 14:00 97.7 70 18 138/80 (99) I&O- Last 24 Hours up to 6 AM 06/18/17 06:00 Intake Total 1080 ml Output Total 2000 ml Balance -920 ml SHARATH MIRAMONTES MD Jun 17, 2017 17:43
[2017-06-17] MEDS: rOPINIRole 0.25 MG TAB(REQUIP) PO SCH (21:20)
[2017-06-17] MEDS: ATORVASTATIN 20 MG TAB PO SCH (21:21)
[2017-06-17 22:00] VITALS: BP 130/60
[2017-06-18] MEDS: oxyCODONE 5MG TAB PO PRN ×3 (03:51→20:32)
[2017-06-18 05:58] LABS: MEAN CORPUSCULAR HGB CONC 32.8 g/dl (32.0-36.5); MEAN CORPUSCULAR VOLUME 76.3 fl (80.0-96.0); PLATELET COUNT, AUTOMATED 198 10^3/uL (150-450); RED CELL DISTRIBUTION WIDTH 15.8 % (11.5-14.5); WHITE BLOOD COUNT 6.5 10^3/uL (4.0-10.0)
[2017-06-18 06:00] VITALS: BP 125/60
[2017-06-18 06:14] LABS: ANION GAP 5 MEQ/L (8-16); BLOOD UREA NITROGEN 18 MG/DL (7-18); CALCIUM LEVEL 8.5 MG/DL (8.8-10.2); CARBON DIOXIDE LEVEL 32 MEQ/L (21-32); CHLORIDE LEVEL 105 MEQ/L (98-107); CREATININE FOR GFR 0.44 MG/DL (0.55-1.02); GLOMERULAR FILTRATION RATE > 60.0 (>45); GLUCOSE, FASTING 98 MG/DL (80-110); MAGNESIUM LEVEL 1.9 MG/DL (1.8-2.4); POTASSIUM SERUM 3.1 MEQ/L (3.5-5.1); SODIUM LEVEL 142 MEQ/L (136-145)
[2017-06-18] MEDS: LevoFLOXacin 750 MG TABLET PO SCH (06:28)
[2017-06-18] MEDS ORDERED: POTASSIUM CHLORIDE 10 MEQ SR TABLET PO ONE (07:30)
--- NOTE | 2017-06-18 07:35 | REP ---
Renal ultrasound: The kidneys are normal size. Right kidney measures 13.1 x 525.2 cm. Left kidney measures 13.7 x 5 point 6.5 cm. Renal cortical echogenicity is normal bilaterally. There is no hydronephrosis on the right on the left. There are no solid or cystic masses. There is a cluster of small calculi in the left kidney, nonobstructive versus vascular atheromatous calcification. Bladder ultrasound: The bladder is empty and cannot be evaluated. Impression: Calcifications in the left kidney, nonobstructive. Otherwise, negative renal ultrasound. Signed by Angel Stoddard MD 06/18/2017 07:27 A
[2017-06-18] MEDS: HumaLOG INSULIN (NovoLOG) PER UNIT SC SCH ×4 (08:23→20:33)
[2017-06-18] MEDS: LEVEMIR (INSULIN DETEMIR) 1 UNITS/0.01ML SC SCH ×2 (08:23→20:33)
[2017-06-18] MEDS: METOPROLOL TART 50 MG TAB PO SCH ×2 (08:24→20:36)
[2017-06-18] MEDS: predniSONE 20 MG TAB PO SCH (08:25)
[2017-06-18] MEDS: NICOTINE 21MG/24HR 1 EA TRANSDERMAL TD SCH (08:25)
[2017-06-18] MEDS: ENOXAPARIN 40 MG/0.4 ML SYRINGE (J1650) SC SCH (08:25)
[2017-06-18] MEDS: TELMISARTAN 20 MG TAB PO SCH (08:26)
[2017-06-18] MEDS: FLUoxetine 20 MG CAP PO SCH (08:27)
[2017-06-18] MEDS: ASPIRIN 81 MG ENTERIC TAB PO SCH (08:27)
[2017-06-18] MEDS: MAGNESIUM OXIDE 400 MG TAB (MAG-OX) PO SCH ×2 (08:27→20:32)
[2017-06-18] MEDS: VITAMIN D 1,000 INTERNATIONAL UNITS TABLET PO SCH (08:27)
[2017-06-18] MEDS: OMEPRAZOLE 20 MG CAP PO SCH (08:27)
[2017-06-18] MEDS: GABAPENTIN 300 MG CAP PO SCH (08:27)
[2017-06-18] MEDS: FUROSEMIDE 20 MG TAB PO SCH (08:27)
[2017-06-18] MEDS: amLODIPine 10 MG TAB PO SCH (08:27)
[2017-06-18] MEDS ORDERED: ISOVUE-370 76% 100ML VIAL (Q9967) As Ordered ONE (10:48)
[2017-06-18] MEDS: tiZANidine 4 MG TAB PO PRN ×2 (12:32→23:51)
--- NOTE | 2017-06-18 13:34 | IPNPDOC ---
Text Note Date of Service The patient was seen on 06/18/17. NOTE Subjective: Patient is a 61 year old female with a PMHx of HTN, DLP, IDDM2, Chronic back pain, Obesity and Hx of Lung nodule s/p Wedge resection who presented to the ER with coughing, myalgia and fevers. She was admitted for acute hypoxic respiratory failure of multifactorial etiology. Patient was seen and examined at the bedside. She is currently off oxygen supplemental, has noted improvement in her breathing. She was found to have hypoxia with ambulation. Overnight patient had some hematuria and a renal US was acquired. Objective: Vitals (See below) General: Lying in bed, no acute distress, comfortable, AAOx3 HEENT: NC, AT CVS: RRR, +S1S2 Lungs: Fair air entry b/l, mild expiratory wheezing appreciated Abdomen: Soft, ND, NT Extremities: - Edema, - Calf tenderness Assessment and plan: Acute hypoxic respiratory failure - possibly 2/2 CAP, Pneumonitis, Cryptogenic organizing pneumonia - Presented with myalgia, fever / chills and productive cough - Physical reveals wheezing bilaterally - Respiratory panel 06/09: Negative; Blood Cultures 06/09: no growth at 5 days - Rheumatalgic workup remains pending - c/w Levaquin (Day #8) and Prednisone (specific taper); s/p Solumedrol - Has been weaned off supplemental oxygen - Pulmonary consulted; appreciate their input - Plan for discharge home by tomorrow; will need prolonged steroid taper and outpatient oxygen (hypoxia with ambulation, sat =< 86%) Hematuria - On evening of 06/17 had hematuria that was noted to be significant - Hemodynamically stable - Hg remains stable - UA acquired on 06/18 AM; revealed 1+ blood - Renal US 06/18: Left sided nephrolithiasis vs. calcification of arteries - CT abdomen / pelvis pending - c/w monitoring Smoker - Advised smoking cessation - c/w Nicotine patch Hyperglycemia - likely 2/2 IDDM2 and corticosteroid use - Will continue to adjust with steroid taper - c/w ISS and Levemir HTN - BP well controlled - c/w Amlodipine, Furosemide, Telmisartan and Metoprolol DLP - c/w Atorvastatin Chronic back pain - c/w Tizanidine and Oxycodone RLS - c/w Ropinirole Depression - c/w Fluoxetine Obesity - complicating medical care GERD - c/w omeprazole DVT prophylaxis - c/w Lovenox Disposition: - c/w PT/OT VS,Fishbone, I+O VS, Fishbone, I+O Laboratory Tests 06/17/17 20:51 06/18/17 05:26 Red Blood Count 4.68, Mean Corpuscular Volume 76.3 L, Mean Corpuscular Hemoglobin 25.0 L, Mean Corpuscular Hemoglobin Concent 32.8, Red Cell Distribution Width 15.8 H, Calcium Level 8.5 L Vital Signs Date Time Temp Pulse Resp B/P (MAP) Pulse Ox O2 Delivery O2 Flow Rate FiO2 06/18/17 12:32 18 06/18/17 08:25 Room Air 06/18/17 08:24 61 151/71 06/18/17 06:00 96.7 91 06/17/17 16:45 1.0 I&O- Last 24 Hours up to 6 AM 06/19/17 06:00 Intake Total 240 ml Output Total 500 ml Balance -260 ml SHARATH MIRAMONTES MD Jun 18, 2017 13:34
[2017-06-18 14:00] VITALS: BP 115/59
--- NOTE | 2017-06-18 14:19 | REP ---
CT of the abdomen pelvis without and with IV contrast, multiphase scanning: There are no solid or cystic renal masses on the right on the left. There is a right renal mid pole calculus measuring 4 mm. No other right renal calculi. There are two left upper pole renal calculi measuring 4 mm and 3 mm. There is a left renal upper pole calculus measuring 7 mm. There is a left renal mid pole calculus measuring 3 ml. There is a left renal 3 ml calculus at the mid pole. There is a left renal mid pole calculus measuring 6 ml, this may be too adjacent smaller calculi. There is no hydronephrosis on the right or the left. There are calcified granulomas in the liver and spleen. Liver and spleen are otherwise normal size and unremarkable. There are surgical clips in the gallbladder fossa. The pancreas is unremarkable. The adrenals and abdominal aorta are unremarkable. The bowel and mesentery are unremarkable. There is a small fat-containing umbilical hernia identified incidentally. Pelvis: The appendix has a normal appearance. The uterus and adnexa are unremarkable except for a trace of ascites. The pelvic bowel loops are unremarkable. Impression: There are bilateral renal calculi as described. There is no hydronephrosis. There are no solid or cystic renal masses. There is a cholecystectomy. The appendix is unremarkable. No bowel obstruction. Trace of ascites in the pelvis. Signed by Angel Stoddard MD 06/18/2017 02:10 P
[2017-06-18] MEDS: ATORVASTATIN 20 MG TAB PO SCH (20:32)
[2017-06-18] MEDS: rOPINIRole 0.25 MG TAB(REQUIP) PO SCH (20:32)
[2017-06-18 22:00] VITALS: BP 142/85
[2017-06-19] MEDS: oxyCODONE 5MG TAB PO PRN ×2 (04:37→12:14)
[2017-06-19] MEDS: LevoFLOXacin 750 MG TABLET PO SCH (05:54)
[2017-06-19 06:00] VITALS: BP 132/75
[2017-06-19 06:07] LABS: MEAN CORPUSCULAR HEMOGLOBIN 24.9 pg (27.0-33.0); MEAN CORPUSCULAR HGB CONC 32.7 g/dl (32.0-36.5); MEAN CORPUSCULAR VOLUME 76.4 fl (80.0-96.0); PLATELET COUNT, AUTOMATED 199 10^3/uL (150-450); RED CELL DISTRIBUTION WIDTH 15.8 % (11.5-14.5); WHITE BLOOD COUNT 6.2 10^3/uL (4.0-10.0)
[2017-06-19 06:35] LABS: ANION GAP 7 MEQ/L (8-16); BLOOD UREA NITROGEN 17 MG/DL (7-18); CALCIUM LEVEL 8.7 MG/DL (8.8-10.2); CARBON DIOXIDE LEVEL 31 MEQ/L (21-32); CHLORIDE LEVEL 102 MEQ/L (98-107); CREATININE FOR GFR 0.55 MG/DL (0.55-1.02); GLOMERULAR FILTRATION RATE > 60.0 (>45); GLUCOSE, FASTING 199 MG/DL (80-110); MAGNESIUM LEVEL 1.7 MG/DL (1.8-2.4); POTASSIUM SERUM 3.2 MEQ/L (3.5-5.1); SODIUM LEVEL 140 MEQ/L (136-145)
[2017-06-19] MEDS ORDERED: POTASSIUM CHLORIDE 10 MEQ SR TABLET PO ONE (07:30)
[2017-06-19] MEDS ORDERED: MAG SULF 1GM/100ML (MAG RUN) 1 GM in APPROPRIATE DILUENT 1 EA IV ONE (07:30)
[2017-06-19] MEDS: NICOTINE 21MG/24HR 1 EA TRANSDERMAL TD SCH (07:54)
[2017-06-19] MEDS: IBUPROFEN 600 MG TAB PO PRN (07:56)
[2017-06-19] MEDS: TELMISARTAN 20 MG TAB PO SCH (07:56)
[2017-06-19] MEDS: FLUoxetine 20 MG CAP PO SCH (07:56)
[2017-06-19] MEDS: amLODIPine 10 MG TAB PO SCH (07:57)
[2017-06-19] MEDS: VITAMIN D 1,000 INTERNATIONAL UNITS TABLET PO SCH (07:57)
[2017-06-19] MEDS: ASPIRIN 81 MG ENTERIC TAB PO SCH (07:57)
[2017-06-19] MEDS: GABAPENTIN 300 MG CAP PO SCH (07:57)
[2017-06-19] MEDS: MAGNESIUM OXIDE 400 MG TAB (MAG-OX) PO SCH (07:57)
[2017-06-19] MEDS: predniSONE 20 MG TAB PO SCH (07:57)
[2017-06-19 07:58] VITALS: BP 132/75
[2017-06-19] MEDS: FUROSEMIDE 20 MG TAB PO SCH (07:58)
[2017-06-19] MEDS: OMEPRAZOLE 20 MG CAP PO SCH (07:58)
[2017-06-19] MEDS: HumaLOG INSULIN (NovoLOG) PER UNIT SC SCH ×2 (07:58→12:14)
[2017-06-19] MEDS: METOPROLOL TART 50 MG TAB PO SCH (07:58)
[2017-06-19] MEDS: LEVEMIR (INSULIN DETEMIR) 1 UNITS/0.01ML SC SCH (07:59)
[2017-06-19] MEDS ORDERED: ALBU83IN INH (13:47)
--- NOTE | 2017-06-19 14:58 | DSES ---
DATE OF ADMISSION: 06/10/2017 DATE OF DISCHARGE: 06/19/2017 ATTENDING PHYSICIAN: Tyrese Tai MD, Erin Robert MD, Harsha Tran MD. PRIMARY CARE PROVIDER: Dave Shaikh REFERRING PHYSICIAN: None. CONSULTING PHYSICIAN: Dr. Grimes, Dr. Cruz CONDITION ON DISCHARGE: Stable. FINAL DIAGNOSES: 1. Community-acquired pneumonia versus pneumonitis versus cryptogenic organizing pneumonia. PROCEDURES: None. HISTORY OF PRESENT ILLNESS: The patient is a 61-year-old female with a past medical history of hypertension, dyslipidemia, insulin-dependent diabetes mellitus type 2, chronic back pain, obesity, and history of a lung nodule, status post wedge resection, presented to the emergency room with coughing, myalgia and fever. She was admitted for acute hypoxic respiratory failure of multifactorial etiology. HOSPITAL COURSE: 1. Acute hypoxic respiratory failure, possibly secondary to community-acquired pneumonia, pneumonitis or cryptogenic organizing pneumonia. Presented with myalgias, fevers, chills, and productive cough. Physical revealed wheezing bilaterally. Respiratory panel on 06/09/2017 was negative. Blood cultures on 06/09/2017 revealed no growth for 5 days. Rheumatologic workup remained pending. The patient was put on Levaquin for 8 days in the hospital and has been given a course of antibiotics to take upon discharge for completion of antibiotic course. The patient has been on high dose Solu-Medrol while she was in the hospital. It was high dose initially and has been tapered down. She will be on a very prolonged prednisone taper, as per pulmonary. She has been weaned off her supplemental oxygenation, which was a very high requirement initially, but is now completely on room air. However, her ambulatory oxygenation was noted to be less than 86% and she will be sent home with home oxygen. Pulmonary was consulted. We appreciate their input. She will be following up with pulmonary upon discharge. 2. Hematuria. On the evening of 06/17/2017, the patient had hematuria and was noted to be significant. She remained hemodynamically stable. Hemoglobin remained stable. Urinalysis on 06/18 revealed 1+ blood. Renal ultrasound on 06/18 revealed left sided nephrolithiasis versus calcification of her arteries. CT of the abdomen and pelvis revealed extensive nephrolithiasis. The patient denied any hematuria after that point. 3. Smoking. Advised smoking cessation. Continue with nicotine patch. 4. Hyperglycemia, likely secondary to insulin-dependent diabetes mellitus type 2 and corticoid steroid use. We will continue to adjust her insulin based on steroid taper. 5. Hypertension. Blood pressure remains well controlled. Continue with amlodipine, furosemide, telmisartan, and metoprolol. 6. Dyslipidemia. Continue with atorvastatin. 7. Chronic back pain. Continue with tizanidine and oxycodone. 8. Restless leg syndrome. Continue with ropinirole. 9. Depression. Continue with fluoxetine. 10. Obesity, complicating medical care. 11. Gastroesophageal reflux disease (GERD). Continue with omeprazole. 12. Anxiety. Continue Zoloft. DISCHARGE MEDICATIONS: The patient is being discharged home on the following medication list: - albuterol 2.5 mg inhaled every 4 hours as needed for shortness of breath - Levaquin 750 mg by mouth daily - nicotine patch one transdermally daily - prednisone 10 mg to be taken as directed on a prolonged prednisone taper as per pulmonary - albuterol sulfate one vial inhaled every 4 hours as needed for shortness of breath - amlodipine 10 mg by mouth daily - aspirin 81 mg by mouth daily - atorvastatin 40 mg by mouth at night - Biotin 500 mcg by mouth daily - bisacodyl 500 mg by mouth daily as needed for constipation - fluoxetine 40 mg by mouth daily - furosemide 200 mg by mouth daily - gabapentin 600 mg by mouth daily - insulin 140 units subcutaneously in the morning - insulin 110 units subcutaneously daily - Lidocaine 5% topical patch every 12 hours - magnesium oxide 400 mg by mouth twice a day - metformin 1000 mg by mouth twice a day - metoprolol tartrate 50 mg by mouth twice a day - omeprazole 40 mg by mouth daily - oxycodone 5 mg by mouth every 6 hours as needed for pain - ropinirole 0.25/0.5 mg by mouth at night - telmisartan 80 mg by mouth daily - tizanidine 2 mg by mouth three times a day as needed for muscle spasms - vitamin D 1000 units by mouth daily DISCHARGE INSTRUCTIONS: The patient has been advised to followup with her primary care provider as well as pulmonary within the next 1 to 2 weeks. She has been advised to remain compliant with treatment plan and medications and return to the emergency room if she has any problems. Time spent on discharge: Greater than 35 minutes.
[2017-06-21 00:08] LABS: ANTI SCLERODERMA ANTIBODIES <0.2 AI (0.0-0.9); BLASTOMYCES ABY Negative (Neg:<1:1); HISTOPLASMA ABY Negative (Neg:<1:1)
== END 2017-06-19 13:58 | disposition home or self-care (01) | DRG 193 ==
LOC: M ED 18:56 → M ED INP 06-10 01:27 → M MSPAV 06-10 02:57
PROVIDERS: ADMIT Hospitalist; ATTEND Internal Medicine
DX: J18.9 Pneumonia, unspecified organism (principal); J96.01 Acute respiratory failure with hypoxia; J84.116 Cryptogenic organizing pneumonia; I10 Essential (primary) hypertension; E78.5 Hyperlipidemia, unspecified; E11.65 Type 2 diabetes mellitus with hyperglycemia; M54.5 Low back pain; E66.9 Obesity, unspecified; R91.1 Solitary pulmonary nodule; R31.9 Hematuria, unspecified; N20.0 Calculus of kidney; F17.200 Nicotine dependence, unspecified, uncomplicated; G25.81 Restless legs syndrome; K21.9 Gastro-esophageal reflux disease without esophagitis; F41.9 Anxiety disorder, unspecified; Z79.82 Long term (current) use of aspirin; Z79.899 Other long term (current) drug therapy; Z79.4 Long term (current) use of insulin; Z88.1 Allergy status to other antibiotic agents; Z88.2 Allergy status to sulfonamides; Z88.8 Allergy status to other drugs, medicaments and biological substances; G89.29 Other chronic pain